=== PATIENT | male | born 1980 | race Caucasian/White ===

== ENCOUNTER 2018-03-10 07:03 | Emergency (ER) | payer MEDICAID, SELFPAY ==
[2018-03-10 07:15] VITALS: BP 106/67; PULSE 66; RESP 16; TEMP 36.5; O2SAT 97
--- NOTE | 2018-03-10 07:37 | DI.RAD_ITS ---
SYMPTOMS/DIAGNOSIS: S/P DOG BITE, ? FOREIGN BODY VERSUS FRACTURE RIGHT HAND: Four views. No priors. No acute fracture or dislocation is identified. No radiopaque foreign bodies are seen in the soft tissues. IMPRESSION: No acute abnormality.
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
[2018-03-10] MEDS: Amoxicillin 875/Clav. 125 TAB PO (08:08)
[2018-03-10] MEDS: Ibuprofen 600 MG TAB PO (08:08)
--- NOTE | 2018-03-10 08:08 | NUR.NOTE ---
[facility] health officer notified of animal bite:
== END 2018-03-10 08:49 | disposition home or self-care (01) ==
PROVIDERS: Emergency Provider Physician Assistant; PCP Nurse Practitioner Adult Health
DX: S61.431A Puncture wound without foreign body of right hand, initial encounter (principal); W54.0XXA Bitten by dog, initial encounter
CPT/HCPCS: 90471; 99284; 73130; 99282

== ENCOUNTER 2019-02-21 15:53 | Emergency (ER) | payer MEDICAID, SELFPAY ==
[2019-02-21 15:57] VITALS: BP 127/92; PULSE 92; RESP 16; TEMP 36.7; O2SAT 97
--- NOTE | 2019-02-21 16:38 | DI.RAD_ITS ---
EXAM: XR HAND RT COMPLETE INDICATION: dog bite thenar eminence. COMPARISON: No exams were available for comparison TECHNIQUE: 2D digital imaging was performed. FINDINGS: No acute fracture or dislocation is seen. There is an old fracture deformity of the 5th metacarpal. No radiopaque foreign bodies are seen in the soft tissues. There is a small amount of air in the so ft tissues between the 1st and 2nd metacarpal bones. IMPRESSION: No acute fracture or dislocation.
--- NOTE | 2019-02-21 16:38 | W.ED.GENAD ---
Discharge Plan Disposition Patient Disposition: HOME Condition: Good Discharge Details Chief Complaint: AnimalBite Clinical Impression: Dog bite of hand Primary Care Provider: Suzanne Howell ED Provider: Dorota Díaz Home Meds and New Rx's Prescriptions: New amoxicillin-pot clavulanate [Augmentin] 875-125 mg tablet 1 tab PO BID Qty: 14 RF: 0 Continued fluoxetine 20 mg Capsule 40 mg PO DAILY RF: 0 Discharge Instructions Instructions: Animal Bite (ED) Additional Instructions: Encourage rest, ice, elevation. Please keep wound clean, dry, covered. Tylenol and/or ibuprofen as needed for discomfort. Please take Augmentin as prescribed to help prevent infection. Please return in 10 days for suture removal and wound evaluation. Keep current dressing on for the next 24 hours. After that time, you may cover with Band-Aids. Wear gloves and appropriate. Please monitor for signs of infection. If you do not notice redness, warmth, drainage, increased pain, fever/chills please seek care urgently once again. Referrals: Suzanne Howell, P[facility]ATHER [Primary Care Provider] - Discharge Data Discharge Date/Time-TO BE ENTERED AT DEPARTURE: 02/21/19 18:00 Medical Decision Making Patient is a 38-year-old [id number]-mlytruao male history of anxiety, presenting today with chief complaint of dog bite to his right hand. He reports a prior to arrival he was throwing trash into a dumpster when a dog bit him as he attempted to pet it. Initially, the patient had reported that he did not know what the dog was. However, on further forward flexion he was able to determine who his dog this was was able to contact the patient. They were able to supply rabies vaccinations and are able to quarantine the dog for the next 10 days. Patient's tetanus is up-to-date, reports has had it within the last year. Denies any altered sensation. Denies other area of injury the time of the incident. Is irregular shaped laceration proximally 5 cm in length over the thenar eminence of the right hand. Ligamentously intact, sensation intact, brisk capillary refill. No pain with axial loading of the thumb patient along the dorsal aspect. Full range of motion. Plan for imaging to evaluate for any bony abnormality, which I find unlikely, or retained foreign body. FINDINGS: Bones/joints: Old fracture in the fifth metacarpal bone, healed. No acute fracture or dislocation. No osteomyelitis. Soft tissues: Normal. IMPRESSION: No acute finding. Discussed these findings with the patient. Patient's wound does gape open significantly is 5 cm in length. We discussed risk/benefits of loose reapproximation suture closure. We did discuss the risks of infection in depth. We discussed risk/benefits of this procedure along with the expected procedural steps. He voiced understanding and wished to proceed. Please see procedure note. Patient tolerated this well. Wound was copiously irrigated and explored to base in bloodless field. No foreign body or debris was noted. Wound was loosely reapproximated with #3 simple interrupted stitches. Wound care was discussed in depth. We discussed the signs symptoms of infection when to seek care urgently once again. Otherwise, patient will return in 10 days for suture removal. All of his questions and concerns were addressed and he is agreement this plan. HPI General Mode of arrival: ambulatory. Date/Time Provider Initiated Documentation: 02/21/19 16:29. Limitations to Documentation: no limitations. Information obtained by: patient and RN notes reviewed. HPI Narrative: Patient 38-year-old osvzm-vlmd-lvvfciin male presenting today with chief complaint of dog bite to the right hand. He reports that he was putting a trash into the dumpster and noted a dog outside. Put out his hand to the dog. Describes the dog is campos, well-kempt. States that the dog then struck out and bit him. He did not notice that the dog had a collar or any identification on it. Patient is up-to-date on tetanus. He has not had rabies vaccines historically. He denies any numbness or tingling. Denies other injury the time of the incident. Is not noted any weakness into the right thumb. Related Data Home Medications Medication Instructions Recorded Confirmed amoxicillin-pot clavulanate 1 tab PO BID #14 tab 02/21/19 [Augmentin] fluoxetine 40 mg PO DAILY 02/21/19 02/21/19 Previous Rx's Medication Instructions Recorded amoxicillin-pot clavulanate 1 tab PO BID #14 tab 02/21/19 [Augmentin] Allergies Allergy/AdvReac Type Severity Reaction Status Date / Time bupropion HCl AdvReac Severe extreme Verified 02/21/19 16:02 [From Wellbutrin] anxiety General Stated Complaint: AnimalBite MARCELO: 4 Review of Systems Constitutional Constitutional: Reports as per HPI, Denies chills, Denies fever(s), Denies headache(s) and Denies weakness ENT Ears, Nose, Mouth, and Throat: Denies headache(s) Cardiovascular Cardiovascular: Reports as per HPI Respiratory Respiratory: Reports as per HPI and Denies cough Musculoskeletal Musculoskeletal: Reports as per HPI and Denies tingling Integumentary/Breasts Skin/Breast: Reports as per HPI and Reports wounds Neurologic Neurologic: Reports as per HPI, Denies headache(s), Denies tingling, Denies paresthesias and Denies weakness [facility] Medical History Alcoh dep NEC/NOS, 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 s/p hospitalization Chronic anxiety (Inactive 04/19/13) Ritualistic tendencies Dysthymia (Chronic 09/12/17) Herpes simplex (Resolved 03/22/12) Oral Surgical History No significant past surgical history (Acute) Family History (Updated 11/29/18 @ 15:01 by Suzanne Howell NP) Mother , [place] 2010 when Cristian was 6 yo, dad remarried CAD (coronary artery disease) Myocardial infarct Father , stroke Stroke Maternal Grandfather Alcohol abuse CAD (coronary artery disease) Other Anxiety Drug addiction Social History Smoking/Tobacco Use Status: Former Tobacco Use Tobacco: How many years used: 10 Alcohol Intake: former Year quit: 2006 Drug use: Never Substance use type: marijuana Adopted: No Foster care: No Number of Children: 0 Pets and animals: Yes Frequency: 3-4 times per week Seatbelt use: always Helmet use: Yes Drive intox or ride w/intox route sales driver: No Working smoke detector in home: Yes Fire extinguisher in home: Yes Carbon monox detector in home: Yes Firearms in home: No Do you feel safe in your relationship?: Yes Additional Social history: occasional THC, 5-6 times /yr Exam Const General: cooperative, healthy appearing, comfortable, no acute distress, well developed and well groomed Nutritional Appearance: average body habitus and well nourished Orientation: alert and awake Resp Effort & Inspection: normal respiratory effort, able to speak in complete sentences and no respiratory distress Cardio Rate: regular rate Rhythm: regular rhythm Skin Trauma: laceration (as drawn below) Neuro General: alert and awake Cognition: normal cognition Speech: speech normal Gait: normal gait Motor: muscle tone normal throughout Sensory Exam: no sensory deficits noted Extrem Right upper extremity: full ROM, normal capillary refill, no joint enlargement, wrist Details: normal to inspection, normal ROM, normal vascular exam and radial pulse present; no tenderness, no swelling, no unusual warmth, no abrasions, no lacerations, no ecchymosis and no deformity and hand; abnormal to inspection, no cyanosis and no edema Hand/finger images: 1. Irregularly shaped wound to the right hand. Full ROM of thumb. No sensation change. Good flexion against resistance at IP and MCP joint. Deep structures are intact. Brisk capillary refill. Minimal bleeding noted. Psych Appearance: grossly normal and well kempt Mental Status: mental status grossly normal Speech and Movement: speech and movement normal Course Vital Signs Vital signs: Vital Signs Temperature 36.7 C 02/21/19 15:57 Pulse 92 H 02/21/19 15:57 Respiratory Rate 16 02/21/19 15:57 Blood Pressure 127/92 H 02/21/19 15:57 Pulse Oximetry 97 02/21/19 15:57 Temperature 36.7 C 02/21/19 15:57 Pulse 92 H 02/21/19 15:57 Respiratory Rate 16 02/21/19 15:57 Respiratory Effort Non-Labored 02/21/19 16:01 Blood Pressure 127/92 H 02/21/19 15:57 Blood Pressure Position Sitting 02/21/19 15:57 Pulse Oximetry 97 02/21/19 15:57 Oxygen Delivery Method Room Air 02/21/19 15:57 Oxygen Flow Rate 0 02/21/19 15:57 Pain Level 5 02/21/19 15:57 Procedures Laceration Laceration 1: Site: hand Side (If applicable): right Size (cm): 5 Description: irregular Depth: simple, single layer Local Anesthetic: Lidocaine 1% Amount of anesthesia used (mL): 10 Pre-repair: wound explored, irrigated extensively and deep structures intact Skin layer closed with: nylon Size (cm): 5-0 Number of sutures: 3
--- NOTE | 2019-02-21 17:00 | DI.VRAD_ITS ---
PROCEDURE INFORMATION: Exam: XR Right Hand Exam date and time: 02/21/2019 4:53 PM Age: 38 years old Clinical history: Injury or trauma; Injury history: Dog bite; Work related; Initial encounter; Hand; Right; Additional info: incorrect marker, should be right TECHNIQUE: Imaging protocol: XR Right hand. Views: 3 or more views. COMPARISON: CR XR hand RT complete 03/10/2018 7:59 AM FINDINGS: Bones/joints: Old fracture in the fifth metacarpal bone, healed. No acute fracture or dislocation. No osteomyelitis. Soft tissues: Normal. IMPRESSION: No acute finding. Dictated and Authenticated by: Davi Robertson MD. Ordering:PARISH Raya MD
--- NOTE | 2019-02-21 17:22 | NUR.NOTE ---
Nursing Note: Faxed to [facility] Dispatch the animal bite report for [facility]. Messages left at work and on cell phone in regards to this incident. Yeny Burgess. Fax [phone]
== END 2019-02-21 18:00 | disposition home or self-care (01) ==
PROVIDERS: Emergency Provider Physician Assistant; PCP Nurse Practitioner Adult Health
DX: S61.451A Open bite of right hand, initial encounter (principal); W54.0XXA Bitten by dog, initial encounter
CPT/HCPCS: 12002; 99283; 73130; 99281

== ENCOUNTER 2024-11-27 21:53 | Emergency (ER) | payer OTHER, MEDICAID, SELFPAY ==
[2024-11-27 21:55] VITALS: BP 148/86; PULSE 94; RESP 20; TEMP 36.1; O2SAT 98
[2024-11-27 21:57] VITALS: BP 148/86; PULSE 94; RESP 20; TEMP 36.1; O2SAT 98
--- NOTE | 2024-11-27 22:00 | RT.EKG_ITS ---
APPROVED REPORT Exam: Resting ECG Reason for Exam: ingestion Patient Location: E HR:78 bpm ECG Measurements Heart Rate 78 AXIS HI 155 P 78 QRSd 88 QRS 71 QT 423 T 66 QTc 483 Conclusion Sinus rhythm...normal P axis, V-rate 60- [address] segment or T wave abnormalities to suggest occlusive [place]
[2024-11-27 22:28] LABS: BE (Venous) 4 mmol/L (-2-3); HCO3 (Venous) 29 mmol/L (23-28); O2 Sat (Venous) 70 %; TCO2 (Venous) 26 mmol/L (24-29); pCO2 (Venous) 49 mmHg (41-51); pO2 (Venous) 38 mmHg
[2024-11-27 22:30] LABS: Abs Immature Grans 0.04 10^3/uL (0.0-0.06); HCT 44.9 % (40.0-50.0); HGB 15.4 g/dL (13.5-17.5); Immature Grans % 0.5 %; MCH 32.0 pg (27.0-33.0); MCHC 34.3 % (32.0-36.0); MCV 93 fL (80-95); MPV 9.6 fL (8.0-11.0); Platelet Count 246 10^3/uL (130-400); RBC 4.81 10^6/uL (4.36-5.78); RDW 12.5 % (11.8-14.1); RDW-SD 43.2 fL; WBC 7.30 10^3/uL (4.4-10.8)
--- NOTE | 2024-11-27 22:30 | W.ED.GENAD ---
Discharge Plan Disposition Patient Disposition: Home Condition: Good Discharge Details Clinical Impression: Intoxication by drug Primary Care Provider: Suzanne Howell ED Provider: Lisa Carranza Home Meds and New Rx's Prescriptions: Continued multivitamin Tablet 1 tab PO DAILY valacyclovir [Valtrex] 1 gram tablet 2,000 mg PO Q12H Qty: 12 1RF Rx Instructions: Cold sores: 2,000mg by mouth q12h x1d, may repeat x1 for cold sores. Start UZIEL after symptom onset. Discharge Instructions Instructions: Hypokalemia Additional Instructions: Call your primary care doctor in the morning to schedule an appointment to be seen within the next 72 hours to followup on your visit here. At that visit please discuss your potassium which is low here in the emergency department. If your potassium gets dangerously low it can cause life threatening cardiac arythmias. Avoid taking medications with the ingredient dextromethorphan; this is likely what caused your symptoms tonight. Return to the emergency department for new or worsening symptoms including vomiting, inability to keep down fluids, if your confusion returns, fever, hallucinations, or if you have any other concerns. Discharge Data Discharge Date/Time-TO BE ENTERED AT DEPARTURE: 11/28/24 02:51 HPI General Mode of arrival: EMS. Date/Time Provider Initiated Documentation: 11/27/24 22:04. Limitations to Documentation: no limitations and altered mental status. Information obtained by: patient and family. HPI Narrative: 44yo M with hx HSV presenting via EMS for altered mental status. History from patient and at bedside. This morning he had some nausea and 2 episodes of nonbloody nonbilious emesis with one episode of nonbloody diarrhea. No abdominal pain or fevers at any point. [place] better as the day went on. Used his vape (marijunna) pen several times throughout the day which is not unusual for him. Sometime around 6-8pm he also took nyquil, states 'a normal dose' for nasal congestion. No cough, chest pain, or shortness of breath. Around 9pm he began acting oddly, asking the same questions over and over again, saying he felt 'spacey and tired'. No hallucinations. This continued to get worse until his called EMS. He has had similar symptoms in the past after taking marijunna and nyquil but never close to this bad. Did not sleep well last night and did not eat much throughout the day today. He is otherwise in his usual state of health with no rash, headache, numbness, tingling, weakness, vertigo, vision changes, or other concerns. Related Data Home Medications ?Medication ?Instructions ?Recorded ?Confirmed multivitamin 1 tab PO DAILY 06/09/20 11/27/24 valacyclovir 1 gram tablet 2,000 mg (2 x 1 gram) PO Q12H #12 09/19/23 11/27/24 (Valtrex) tabs Previous Rx's ?Medication ?Instructions ?Recorded valacyclovir 1 gram tablet 2,000 mg (2 x 1 gram) PO Q12H #12 09/19/23 (Valtrex) tabs Allergies Allergy/AdvReac Type Severity Reaction Status Date / Time bupropion HCl (From AdvReac Severe extreme Verified 09/19/23 11:17 Wellbutrin) anxiety General Stated Complaint: Abd Prob MARCELO: 3 Review of Systems Narrative: see HPI Exam Narrative Exam Narrative: General: Alert, well appearing, well nourished, in no acute distress. Head: Normocephalic, atraumatic Neck: Trachea midline, ?Neck supple. ENT: ?MMM.? Cardiac: ?RRR, no murmurs appreciated Resp: No respiratory distress. CTAB. Abd: ?Soft, non-distended, nontender : ?No suprapubic tenderness. Extremities: ?No deformities.? No peripheral edema. Neuro: ? GCS 15.? PERRL.? Mydriasis. EOMI.? Fluent speech, no dysarthria. Motor- 5/5 strength symmetric bilateral upper and lower extremities Sensation- ?Intact to light touch and symmetric multiple dermatomes including upper and lower extremities Coordination- No dysmetria on finger to nose Reflexes- 2/4 achilles & patellar, no clonus Gait/station: ?Normal stance.? No truncal ataxia. Steady gait with equal normal steps CRANIAL NERVES: II: Pupils equal and reactive, III, IV, : EOM intact, no gaze preference or deviation, no nystagmus. V: normal sensation in V1, V2, and V3 segments bilaterally VII: no asymmetry, no nasolabial fold flattening VIII: normal hearing to speech IX, X: normal palatal elevation, no uvular deviation XII: midline tongue protrusion Psych: Calm, cooperative.? Well groomed.? Mood spacey, affect congruent.? Speech with normal volume, rate, rythym and tone. Linear and goal directed.? Denies SI/HI/AH/VH. ? Does not appear to be responding to internal stimuli. No psychomotor slowing or agitation. Course Vital Signs Vital signs: Vital Signs Temperature 36.1 C L 11/27/24 21:55 Pulse 94 H 11/27/24 21:55 Respiratory Rate 20 11/27/24 21:55 Blood Pressure 148/86 H 11/27/24 21:55 Pulse Oximetry 98 11/27/24 21:55 Temperature 36.1 C L 11/27/24 21:57 Pulse 94 H 11/27/24 21:57 Respiratory Rate 20 11/27/24 21:57 Blood Pressure 148/86 H 11/27/24 21:57 Blood Pressure Position Sitting 11/27/24 21:57 Pulse Oximetry 98 11/27/24 21:57 Oxygen Delivery Method Room Air 11/27/24 21:57 Oxygen Flow Rate 0 11/27/24 21:57 Lab/Test Results Lab/Test Results: Laboratory Tests Range/Units 11/27/24 22:22 VBG pH (7.31-7.41) 7.39 VBG pCO2 (41-51) mmHg 49 VBG pO2 mmHg 38 VBG HCO3 (23-28) mmol/L 29 H VBG Total CO2 (24-29) mmol/L 26 VBG O2 Saturation % 70 VBG Base Excess (-2-3) mmol/L 4 H Medical Decision Making 44yo M with hx HSV presenting via EMS for altered mental status. N/V/D first thing in the morning but none since then, did not sleep well last night or eat much today. Marijunna use several times throughout the day, then nyquil (reports 'normal' dose) sometime between 6-8pm. Around 9pm began acting oddly, confused, repeating the same questions. Vital signs reassuring on arrival. Non-focal neurologic exam. Does have moderate mydriasis and some confusion, difficulty remembering the course of our conversation. Exam overall not suggestive of sympathomimetic or serotinergic toxidrome; does seem consistent with dextromethorphan ingestion though would not expect this from typical dose. Less likely CVA given history; discussed with patient and at bedside with shared decision making and they would like to proceed with CT. -EKG NSR, acceptable intervals, no ST segment or T wave abnormalities to suggest occlusive ME -Labs reviewed as below, CBC reassuring with no leukocytosis or anemia, CMP with hypokalemia at 3.1 in the setting of vomiting earlier today (oral replacement ordered), Mg normal, TSH elevated with normal T4, VBG with no acidosis and no concerning abnormalities, serum salicylate & etoh negative, acetaminophen level detectable but WNL at 2-4 hours post ingestion. -CT head independently reviewed, no ICH or large mass on my view, radiology read with no acute findings. One episode of vomiting here in the ED during lab draw (patient and report he often has difficulty with needles), otherwise no N/V in the ED. Suspect vasovagal response. Discussed with poison control who agree overall presentation consistent with dextromethorphan ingestion. Plan for repeat acetaminophen level and discharge when mental status clearing. Repeat acetaminophen level at 4-6 hours post ingestion undetectable. Repeat K 4.0. On reassessment he continues to have mydriasis however mental status much improved, no longer seems confused (though perhaps still somewhat giddy). Patient requesting discharge home and at bedside states he is acting like his usual self. Discharged home; discharge instructions and return precautions were reviewed with patient and family at beside who verbalized understanding. All questions were answered and they are in full agreement with the plan. IMPRESSION: 1. No large vessel stenosis or occlusion detected involving the major branches of the anterior or posterior intracranial circulation. 2. Unremarkable noncontrast head CT Lab Data Lab results reviewed: Yes I reviewed the patient's lab results. Labs: Laboratory Tests Range/Units 11/27/24 11/28/24 22:22 01:27 WBC (4.4-10.8) 10^3/uL 7.30 RBC (4.36-5.78) 10^6/uL 4.81 Hgb (13.5-17.5) g/dL 15.4 Hct (40.0-50.0) % 44.9 MCV (80-95) fL 93 MCH (27.0-33.0) pg 32.0 MCHC (32.0-36.0) % 34.3 RDW (11.8-14.1) % 12.5 Plt Count (130-400) 10^3/uL 246 MPV (8.0-11.0) fL 9.6 Immature Gran % % 0.5 Neutrophils % % 49.0 Lymphocytes % % 41.6 Monocytes % % 6.7 Eosinophils % % 1.4 Basophils % % 0.8 Nucleated RBC % (0.0-0.3) % 0.0 Absolute Neutrophils (1.2-6.7) 10^3/uL 3.57 Absolute Lymphocytes (1.2-3.4) 10^3/uL 3.04 Absolute Monocytes (0.1-0.8) 10^3/uL 0.49 Absolute Eosinophils (0.0-0.7) 10^3/uL 0.10 Absolute Basophils (0.0-0.2) 10^3/uL 0.06 VBG pH (7.31-7.41) 7.39 VBG pCO2 (41-51) mmHg 49 VBG pO2 mmHg 38 VBG HCO3 (23-28) mmol/L 29 H VBG Total CO2 (24-29) mmol/L 26 VBG O2 Saturation % 70 VBG Base Excess (-2-3) mmol/L 4 H Sodium (136-145) mmol/L 140 Potassium (3.5-5.1) mmol/L 3.1 L 4.0 Chloride (98-107) mmol/L 99 Carbon Dioxide (21.0-32.0) mmol/L 30.2 Anion Gap (3-11) mmol/L 10.8 BUN (7-18) mg/dL 8 Creatinine (0.70-1.30) mg/dL 1.0 Est GFR (CKD-EPI 2020) (mL/min/1.73m2) 95.77 Glucose (74-106) mg/dL 111 H Calcium (8.5-10.1) mg/dL 9.3 Magnesium (1.8-2.4) mg/dL 2.0 Total Bilirubin (0.2-1.0) mg/dL 0.5 AST (15-37) U/L 23 ALT (16-63) U/L 24 Alkaline Phosphatase (46-116) U/L 75 Total Protein (6.4-8.2) g/dL 8.2 Albumin (3.4-5.0) g/dL 4.5 TSH (0.36-3.74) uIU/mL 4.39 H Free T4 (0.76-1.46) ng/dL 0.95 Salicylates (<2.8) mg/dL < 2.8 Acetaminophen (10-30) ug/mL 15 < 2 Ethyl Alcohol (<10) mg/dL < 3.0 Add-On Test Request DONE Quality:SDOH Health Related Social Needs: Health related social needs details N/A PFSH All Active Problems (Updated 11/28/24 @ 02:36 by Lisa Carranza MD) Intoxication by drug (Acute) Multiple benign nevi (Acute) Herpes simplex (Chronic 03/22/12) Oral; suppressive tx started 12/12/2019 History of nicotine dependence (Chronic) Medical History (Updated 11/28/24 @ 02:36 by Lisa Carranza MD) Dysthymia (09/12/17) Intermittent fluox Chronic anxiety (04/19/13) Ritualistic tendencies Alcoh dep NEC/NOS, 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 s/p hospitalization Surgical History No significant past surgical history Family History Mother , [place] 2010 when Cristian was 6 yo, dad remarried CAD (coronary artery disease) Myocardial infarct Father , stroke Stroke Maternal Grandfather Alcohol abuse CAD (coronary artery disease) Other Anxiety Drug addiction Social History Smoking/Tobacco Use Status: Former Tobacco Use Tobacco: How many years used: 10 Smoking risk assessment performed?: Yes Alcohol Intake: former Year quit: 2006 Drug use: Rarely Substance use type: marijuana Adopted: No Caregiver/Support person: No Foster care: No Household members: family Housing: house Number of Children: 1 Communication Needs: None Education Level: high school Do you need help understanding health information?: Never 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 Pets and animals: Yes Pets and animals: cat(s) and dog(s) Sexually active: Yes Do you think of yourself as: straight/heterosexual Current gender identity: male What is your relationship status?: How often do you talk on the phone with friends or family?: never How often do you get together with friends or relatives?: never How often do you attend samaritan or religion services?: decline to answer Do you belong to any clubs or organized social groups?: no Panel score (0-1 are the most socially isolated patients): 1 What type of physical activity do you participate in: regular exercise and other Details: basketball Duration: 15-30 minutes/day Frequency: 3-4 times per week Edna/Sikh: None Agree to transfusion: No Seatbelt use: always Helmet use: No (No reason) Drive intox or ride w/intox 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
[2024-11-27 22:47] LABS: ALT 24 U/L (16-63); AST 23 U/L (15-37); Albumin 4.5 g/dL (3.4-5.0); Alkaline Phosphatase 75 U/L (46-116); Anion Gap 10.8 mmol/L (3-11); BUN 8 mg/dL (7-18); Bilirubin, Total 0.5 mg/dL (0.2-1.0); CO2 30.2 mmol/L (21.0-32.0); Calcium 9.3 mg/dL (8.5-10.1); Chloride 99 mmol/L (98-107); Estimated GFR 95.77 (mL/min/1.73m2); Glucose 111 mg/dL (74-106); Magnesium 2.0 mg/dL (1.8-2.4); Potassium 3.1 mmol/L (3.5-5.1); Sodium 140 mmol/L (136-145); Total Protein 8.2 g/dL (6.4-8.2)
[2024-11-27 22:56] LABS: TSH (W/Ref FT4) 4.39 uIU/mL (0.36-3.74)
--- NOTE | 2024-11-27 23:00 | DI.CT_ITS ---
Exam(s) CT BRAIN NECK CTA EXAM: CT BRAIN NECK CTA CLINICAL HISTORY: altered mental status. TECHNIQUE: Imaging Protocol: Axial CT angiography was performed with multi- slice acquisition and multi-planar and/or 3D reconstructions. CONTRAST MATERIAL: Intravenous: Omnipaque 350 contrast volume:70 mL COMPARISON: No exams were available for comparison FINDINGS: CT Head W/O and W: Ventricles and Extra axial spaces: Normal in size and morphology for the patient's age. Hemorrhage: None. Cerebral parenchyma: Normal. Midline shift: None. Brainstem/Cerebellum: Normal. Calvarium: Normal. Visualized Paranasal sinuses/Mastoids: Clear. Soft Tissues: Unremarkable. Enhancement: Unremarkable. CTA Neck W: Common Carotid: Right: No dissection, occlusion or significant stenosis. Left: No dissection, occlusion or significant stenosis. External Carotid: Right: No occlusion or significant stenosis. Left: No occlusion or significant stenosis. Internal Carotid: Right: No dissection, occlusion or significant stenosis. Left: No dissection, occlusion or significant stenosis. Vertebral Artery: Right: No dissection, occlusion or significant stenosis. Left: No dissection, occlusion or significant stenosis. Lung Apices: Normal. Bones: Within normal limits for the patient's age. Soft Tissues: Normal. Thyroid gland: Unremarkable. CTA Brain W: Internal Carotid Arteries: Normal. Anterior Cerebral Arteries: Right: No aneurysm, occlusion or significant stenosis. Left: No aneurysm, occlusion or significant stenosis. Middle Cerebral Arteries: Right: No aneurysm, occlusion or significant stenosis. Left: No aneurysm, occlusion or significant stenosis. Posterior Cerebral Arteries: Right: No aneurysm, occlusion or significant stenosis. Left: No aneurysm, occlusion or significant stenosis. Vertebral Arteries: Right: No aneurysm, occlusion or significant stenosis. Left: No aneurysm, occlusion or significant stenosis. Basilar Artery: No aneurysm, occlusion or significant stenosis. IMPRESSION: 1. No large vessel occlusion or significant stenosis on the CT angiography of the head. 2. No acute intracranial process. 3. No occlusion or significant stenosis on the CT angiography of the neck. 4. The preliminary [facility] report was reviewed. RADIATION DOSE DELIVERED: 2,142.23mGy.cm Total DLP DATA REPOSITORY: All CT scans at this facility are submitted to the National Radiology Data Registry (NRDR) Dose Index Registry (DIR) with the [employer] (ACR). RADIATION OPTIMIZATION: All CT scans at this facility use at least one of these dose optimization techniques: automated exposure control; mA and/or kV adjustment per patient size (includes targeted exams where dose is matched to clinical indication); or iterative reconstruction.
[2024-11-27 23:06] LABS: Lab Add On Test DONE
[2024-11-27] MEDS: Potassium Chloride Liquid 20 MEQ PKT 40 MEQ PO (23:16)
[2024-11-27 23:24] LABS: Acetaminophen 15 ug/mL (10-30); Salicylate < 2.8 mg/dL (<2.8)
[2024-11-27] MEDS: Omnipaque 350 MG/ML 100 ML BTL IJ (23:37)
[2024-11-27] MEDS: Normal Saline - Diluent 50 ML VIAL IJ (23:38)
--- NOTE | 2024-11-27 23:44 | DI.[facility]_ITS ---
PROCEDURE INFORMATION: Exam: CTA Head Without And With Contrast, Arteriography Exam date and time: 11/27/2024 11:20 PM Age: 44 years old Clinical indication: Other: AMS; Altered mental status TECHNIQUE: Imaging protocol: Computed tomographic angiography of the head without and with contrast. Exam focused on the arteries. 3D rendering (Not supervised by radiologist): MIP and/or 3D reconstructed images were created by the technologist. COMPARISON: No relevant prior studies available. FINDINGS: ANTERIOR CIRCULATION: Right internal carotid artery: Intracranial segment is patent with no significant stenosis or occlusion. No aneurysm. Right middle cerebral artery: No occlusion or significant stenosis. No aneurysm. Right anterior cerebral artery: No occlusion or significant stenosis. No aneurysm. Left internal carotid artery: Intracranial segment is patent with no significant stenosis. No aneurysm. Left middle cerebral artery: No occlusion or significant stenosis. No aneurysm. Left anterior cerebral artery: No occlusion or significant stenosis. No aneurysm. POSTERIOR CIRCULATION: Right vertebral artery: No occlusion or significant stenosis. No aneurysm. Left vertebral artery: No occlusion or significant stenosis. No aneurysm. Basilar artery: No occlusion or significant stenosis. No aneurysm. Right posterior cerebral artery: No occlusion or significant stenosis. No aneurysm. Left posterior cerebral artery: No occlusion or significant stenosis. No aneurysm. HEAD: Brain: No intracranial mass, acute transcortical infarction or recent intracranial hemorrhage is detected. Cerebral ventricles: No midline shift or hydrocephalus. Bones: No acute fracture. Paranasal sinuses: Grossly clear throughout. Mastoid air cells: Grossly clear bilaterally. Soft tissues: Unremarkable. IMPRESSION: 1. No large vessel stenosis or occlusion detected involving the major branches of the anterior or posterior intracranial circulation. 2. Unremarkable noncontrast head CT. PROCEDURE INFORMATION: Exam: CTA Neck Without And With Contrast Exam date and time: 11/27/2024 11:20 PM Age: 44 years old Clinical indication: Other: AMS; Altered mental status TECHNIQUE: Imaging protocol: Computed tomographic angiography of the neck without and with contrast. Exam focused on the cervical segments of the vasculature. 3D rendering (Not supervised by radiologist): MIP and/or 3D reconstructed images were created by the technologist. COMPARISON: No relevant prior studies available. FINDINGS: Right common carotid artery: No stenosis. No dissection or occlusion. Right internal carotid artery: No stenosis of the extracranial segment. No dissection or occlusion. Right external carotid artery: No occlusion or stenosis of the origin. Left common carotid artery: No stenosis. No dissection or occlusion. Left internal carotid artery: No stenosis of the extracranial segment. No dissection or occlusion. Left external carotid artery: No occlusion or stenosis of the origin. Right vertebral artery: No stenosis. No dissection or occlusion. Left vertebral artery: No stenosis. No dissection or occlusion. Soft tissues: Normal. No significant soft tissue swelling. Bones/joints: No acute fracture. IMPRESSION: No evidence of 50% or greater stenosis involving the cervical segments of the right or left internal carotid arteries by NASCET criteria. REFERENCES: NASCET CRITERIA. The degree of stenosis in the cervical segment of the internal carotid artery is based on NASCET criteria. Normal is no stenosis. Mild is less than 50% stenosis. Moderate is 50-69% stenosis. Severe is 70% to 99% stenosis. Total occlusion is no detectable patent lumen. Dictated and Authenticated by: Dc Palma MD. Orderin Tere Gonzalez MD
[2024-11-28] MEDS: Ondansetron O.D.T. 4 MG TABEF PO (01:13)
[2024-11-28 01:40] LABS: Potassium 4.0 mmol/L (3.5-5.1)
[2024-11-28 01:57] LABS: Acetaminophen < 2 ug/mL (10-30)
[2024-11-28 02:42] VITALS: PULSE 87; O2SAT 99
[2024-11-28 02:43] VITALS: BP 133/66; PULSE 83; PULSE 87; RESP 18; TEMP 35.6; O2SAT 99
[2024-11-28 02:51] VITALS: BP 133/66; PULSE 83; RESP 18; O2SAT 99
== END 2024-11-28 02:51 | disposition home or self-care (01) ==
PROVIDERS: Emergency Provider Student in an Organized Health Care Education/Training Program; PCP Nurse Practitioner Adult Health
DX: F19.929 Other psychoactive substance use, unspecified with intoxication, unspecified (principal)
CPT/HCPCS: 99285; 99283; 36415; 70496; 70498; 80053; 82805; 93005; 80320; 80329; 83735; 84132; 84439; 84443; 85025; 93010; J3490

== ENCOUNTER 2024-12-20 20:09 | Observation (INO) | payer OTHER, MEDICAID, SELFPAY ==
[2024-12-20] VITALS (14 sets, daily range): BP systolic 69–157; BP diastolic 24–95; PULSE 78–108; RESP 20; TEMP 36.5; O2SAT 94–98
[2024-12-20] MEDS: Lactated Ringers 1,000 ML 1000 ML IV (21:01)
[2024-12-20 21:06] LABS: Abs Immature Grans 0.03 10^3/uL (0.0-0.06); HCT 44.8 % (40.0-50.0); HGB 15.4 g/dL (13.5-17.5); Immature Grans % 0.3 %; MCH 32.0 pg (27.0-33.0); MCHC 34.4 % (32.0-36.0); MCV 93 fL (80-95); MPV 9.9 fL (8.0-11.0); Platelet Count 227 10^3/uL (130-400); RBC 4.82 10^6/uL (4.36-5.78); RDW 12.4 % (11.8-14.1); RDW-SD 42.4 fL; WBC 9.77 10^3/uL (4.4-10.8)
[2024-12-20 21:24] LABS: Ammonia < 10 umol/L (11-32)
[2024-12-20 21:30] LABS: ALT 26 U/L (16-63); AST 26 U/L (15-37); Albumin 4.4 g/dL (3.4-5.0); Alkaline Phosphatase 81 U/L (46-116); Anion Gap 9.9 mmol/L (3-11); BUN 9 mg/dL (7-18); Bilirubin, Total 0.5 mg/dL (0.2-1.0); CO2 29.1 mmol/L (21.0-32.0); Calcium 9.5 mg/dL (8.5-10.1); Chloride 100 mmol/L (98-107); Estimated GFR 108.68 (mL/min/1.73m2); Glucose 168 mg/dL (74-106); Magnesium 1.8 mg/dL (1.8-2.4); Potassium 3.7 mmol/L (3.5-5.1); Sodium 139 mmol/L (136-145); TSH (W/Ref FT4) 2.88 uIU/mL (0.36-3.74); Total Protein 8.3 g/dL (6.4-8.2); Troponin I 4 ng/L (<or=76)
--- NOTE | 2024-12-20 22:07 | ED.GENADUL_ITS ---
Discharge Plan Discharge Details Chief Complaint: AMS/LOC Primary Care Provider: Suzanne Howell ED Provider: Shad Garcia Home Meds and New Rx's Prescriptions: No Action multivitamin Tablet 1 tab PO DAILY valacyclovir [Valtrex] 1 gram tablet 2,000 mg PO Q12H Qty: 12 1RF Rx Instructions: Cold sores: 2,000mg by mouth q12h x1d, may repeat x1 for cold sores. Start UZIEL after symptom onset. HPI General Mode of arrival: ambulatory . Date/Time Provider Initiated Documentation: 12/20/24 20:41 . Limitations to Documentation: altered mental status . Information obtained by: patient and family . HPI Narrative: HISTORY OF PRESENT ILLNESS This is a 44yo male with a history of depression and anxiety presenting with confusion and forgetfulness. History limited secondary to altered mentation. History provided by significant other. This evening, he started repeating himself and asking the same questions. He also had difficulty remembering his whereabouts. His condition worsened rapidly as the evening progressed. He does not recall his previous visit to the ER a few weeks ago. He reports no pain, headache, nausea, shaking episodes, or urinary incontinence. He has been experiencing intermittent headaches over the past few days. He has been using THC gummies for a few years now, but this is the first time he has experienced such symptoms. He has been sober from alcohol for about 16 years and reports no use of other drugs. He is currently unemployed and spends most of his time at home. He does not take any medications regularly. He took Tums tonight due to feeling sweaty and unwell, but his condition deteriorated rapidly afterwards. He has not eaten all day and consumed a THC gummy after returning home. It is unclear if he had any THC before that. His partner believes that the combination of THC and an empty stomach may have triggered or exacerbated his symptoms. The patient experienced a similar episode of confusion and forgetfulness a few weeks ago. He was evaluated in the ED and had a negative workup including CT head. Symptoms improved. It was believed that that THC was involved in his last episode as well. Related Data Home Medications ?Medication ?Instructions ?Recorded ?Confirmed multivitamin 1 tab PO DAILY 06/09/2012/03 valacyclovir 1 gram tablet 2,000 mg (2 x 1 gram) PO Q1 2H #12 09/19/23 12/20/24 (Valtrex) tabs Previous Rx's ?Medication ?Instructions ?Recorded valacyclovir 1 gram tablet 2,000 mg (2 x 1 gram) PO Q1 2H #12 09/19/23 (Valtrex) tabs Allergies Allergy/AdvReac Type Severity Reaction Status Date / Time bupropion HCl (From AdvReac Severe extreme Verified 12/20/24 20:19 Wellbutrin) anxiety General Stated Complaint: AMS/LOC MARCELO: 3 Review of Systems Constitutional Constitutional: Reports as per HPI Neurologic Neurologic: Reports as per HPI Exam Const General: cooperative and no acute distress Nutritional Appearance: thin Orientation: alert and confused HENPA Head: normocephalic and atraumatic Mouth: moist mucous membranes Eyes Conjunctivae: normal conjunctivae Sclera: normal sclerae Pupils: PERRL and normal by confrontation EOM: EOM intact bilaterally Neck Neck: full ROM, trachea midline and supple Resp Effort & Inspection: normal respiratory effort Auscultation: clear to auscultation bilaterally, no rales, no rhonchi and no wheezes Cardio Jugular venous pressure: no JVD Rate: regular rate and not tachycardic Rhythm: regular rhythm GI Palpation: soft, not firm, no guarding, no masses, not rigid and nontender Skin General skin exam: no rashes or lesions noted and pallor Neuro General: patient alert, patient awake, patient oriented x3 and tone normal Cognition: abnormal cognition Speech: speech normal Motor: strength 5/5 throughout Sensory Exam: no sensory deficits noted Extrem General: no edema Course Vital Signs Vital signs: Vital Signs Temperature 36.5 C 12/20/24 20:13 Pulse 93 H 12/20/24 20:13 Respiratory Rate 12/20/24 20:13 Blood Pressure 157/93 H 12/20/24 20:13 Pulse Oximetry 96 12/20/24 20:13 Temperature 36.5 C 12/20/24 20:17 Pulse 93 H 12/20/24 20:17 Respiratory Rate 20 12/20/24 20:17 Respiratory Effort Normal 12/20/24 20:17 Respiratory Depth Normal 12/20/24 20:17 Respiratory Pattern Normal 12/20/24 20:17 Blood Pressure 157/93 H 12/20/24 20:17 Blood Pressure Position Sitting 12/20/24 20:17 Pulse Oximetry 96 12/20/24 20:17 Oxygen Delivery Method Room Air 12/20/24 20:17 Oxygen Flow Rate 0 12/20/24 20:17 Lab/Test Results Lab/Test Results: Laboratory Tests Range/Units 12/20/24 12/20/24 20:40 21:05 WBC (4.4-10.8) 10^3/uL 9.77 RBC (4.36-5.78) 10^6/uL 4.82 Hgb (13.5-17.5) g/dL 15.4 Hct (40.0-50.0) % 44.8 MCV (80-95) fL 93 MCH (27.0-33.0) pg 32.0 MCHC (32.0-36.0) % 34.4 RDW (11.8-14.1) % 12.4 Plt Count (130-400) 10^3/uL 227 MPV (8.0-11.0) fL 9.9 Immature Gran % % 0.3 Neutrophils % % 73.4 Lymphocytes % % 20.8 Monocytes % % 5.2 Eosinophils % % 0.1 Basophils % % 0.2 Nucleated RBC % (0.0-0.3) % 0.0 Absolute Neutrophils (1.2-6.7) 10^3/uL 7.17 H Absolute Lymphocytes (1.2-3.4) 10^3/uL 2.03 Absolute Monocytes (0.1-0.8) 10^3/uL 0.51 Absolute Eosinophils (0.0-0.7) 10^3/uL 0.01 Absolute Basophils (0.0-0.2) 10^3/uL 0.02 Sodium (136-145) mmol/L 139 Potassium (3.5-5.1) mmol/L 3.7 Chloride (98-107) mmol/L 100 Carbon Dioxide (21.0-32.0) mmol/L 29.1 Anion Gap (3-11) mmol/L 9.9 BUN (7-18) mg/dL 9 Creatinine (0.70-1.30) mg/dL 0.9 Est GFR (CKD-EPI 2020) (mL/min/1.73m2) 108.68 Glucose (74-106) mg/dL 168 H Calcium (8.5-10.1) mg/dL 9.5 Magnesium (1.8-2.4) mg/dL 1.8 Total Bilirubin (0.2-1.0) mg/dL 0.5 AST (15-37) U/L 26 ALT (16-63) U/L 26 Alkaline Phosphatase (46-116) U/L 81 Ammonia (11-32) umol/L < 10 L Troponin I (<or=76) ng/L 4 Total Protein (6.4-8.2) g/dL 8.3 H Albumin (3.4-5.0) g/dL 4.4 TSH (0.36-3.74) uIU/mL 2.88 Ethyl Alcohol (<10) mg/dL < 3.0 Medical Decision Making ASSESSMENT AND PLAN Initial Assessment: 44 yo male with significant alteration in mental status. Patient is currently amnestic and confused. Symptoms strated after consuming THC gummy. Patient is hypertensive blood pressure 157/93. Differential Diagnosis: - THC ingestion: Presumed cause of altered mental status. Plan: Administer i.v. fluid bolus. - Other substances: Possibility cannot be ruled out. Plan: Obtain blood work and urine specimen for screening. ED Course: - Blood work obtained - Urine specimen obtained - i.v. fluid bolus administered - Past medical record was reviewed: CTA of the brain and neck 11/27/2024 as interpreted by radiology: 1. No large vessel occlusion or significant stenosis on the CT angiography of the head. 2. No acute intracranial process. 3. No occlusion or significant stenosis on the CT angiography of the neck. 4. The preliminary [facility] report was reviewed. - 2239 --patient reassessed and continues to have repetitive questioning where am I and what is going on. knows its 2024. Continues to have no pain. - Labs reviewed: Hyperglycemia, glucose 168. No anion gap. No significant electrolyte abnormalities. UDS pending. - UDS positive for THC Clinical Impression: - Altered mental status suspected secondary to THC ingestion This document was written with the assistance of CHIRAG Moreira. The patient consented to its use. Lab Data Lab results reviewed: Yes I reviewed the patient's lab results. Labs: Laboratory Tests Range/Units 12/20/24 12/20/24 20:40 21:05 WBC (4.4-10.8) 10^3/uL 9.77 RBC (4.36-5.78) 10^6/uL 4.82 Hgb (13.5-17.5) g/dL 15.4 Hct (40.0-50.0) % 44.8 MCV (80-95) fL 93 MCH (27.0-33.0) pg 32.0 MCHC (32.0-36.0) % 34.4 RDW (11.8-14.1) % 12.4 Plt Count (130-400) 10^3/uL 227 MPV (8.0-11.0) fL 9.9 Immature Gran % % 0.3 Neutrophils % % 73.4 Lymphocytes % % 20.8 Monocytes % % 5.2 Eosinophils % % 0.1 Basophils % % 0.2 Nucleated RBC % (0.0-0.3) % 0.0 Absolute Neutrophils (1.2-6.7) 10^3/uL 7.17 H Absolute Lymphocytes (1.2-3.4) 10^3/uL 2.03 Absolute Monocytes (0.1-0.8) 10^3/uL 0.51 Absolute Eosinophils (0.0-0.7) 10^3/uL 0.01 Absolute Basophils (0.0-0.2) 10^3/uL 0.02 Sodium (136-145) mmol/L 139 Potassium (3.5-5.1) mmol/L 3.7 Chloride (98-107) mmol/L 100 Carbon Dioxide (21.0-32.0) mmol/L 29.1 Anion Gap (3-11) mmol/L 9.9 BUN (7-18) mg/dL 9 Creatinine (0.70-1.30) mg/dL 0.9 Est GFR (CKD-EPI 2020) (mL/min/1.73m2) 108.68 Glucose (74-106) mg/dL 168 H Calcium (8.5-10.1) mg/dL 9.5 Magnesium (1.8-2.4) mg/dL 1.8 Total Bilirubin (0.2-1.0) mg/dL 0.5 AST (15-37) U/L 26 ALT (16-63) U/L 26 Alkaline Phosphatase (46-116) U/L 81 Ammonia (11-32) umol/L < 10 L Troponin I (<or=76) ng/L 4 Total Protein (6.4-8.2) g/dL 8.3 H Albumin (3.4-5.0) g/dL 4.4 TSH (0.36-3.74) uIU/mL 2.88 Ethyl Alcohol (<10) mg/dL < 3.0 Quality:SDOH Health Related Social Needs: Health related social needs details N/A PFSH All Active Problems Intoxication by drug (Acute) Multiple benign nevi (Acute) Herpes simplex (Chronic 03/22/12) Oral; suppressive tx started 12/12/2019 History of nicotine dependence (Chronic) Medical History Dysthymia (09/12/17) Intermittent fluox Chronic anxiety (04/19/13) Ritualistic tendencies Alcoh dep NEC/NOS, 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 s/p hospitalization Surgical History No significant past surgical history Family History Mother , [place] 2010 when Cristian was 6 yo, dad remarried CAD (coronary artery disease) Myocardial infarct Father , stroke Stroke Maternal Grandfather Alcohol abuse CAD (coronary artery disease) Other Anxiety Drug addiction Social History Smoking/Tobacco Use Status: Former Tobacco Use Tobacco: How many years used: 10 Smoking risk assessment performed?: Yes Alcohol Intake: former Year quit: 2006 Drug use: Rarely Substance use type: marijuana Adopted: No Caregiver/Support person: No Foster care: No Household members: family Housing: house Number of Children: 1 Communication Needs: None Education Level: high school Do you need help understanding health information?: Never 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 [employer] Pets and animals: Yes Pets and animals: cat(s) and dog(s) Sexually active: Yes Do you think of yourself as: straight/heterosexual Current gender identity: male What is your relationship status?: How often do you talk on the phone with friends or family?: never How often do you get together with friends or relatives?: never How often do you attend latter day or nondenominational services?: decline to answer Do you belong to any clubs or organized social groups?: no Panel score (0-1 are the most socially isolated patients): 1 What type of physical activity do you participate in: regular exercise and other Details: basketball Duration: 15-30 minutes/day Frequency: 3-4 times per week Edna/Latter-Day: None Agree to transfusion: No Seatbelt use: always Helmet use: No (No reason) Drive intox or ride w/intox rivet 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
[2024-12-20 22:52] LABS: Cannabinoids THC Positive (Negative); METHADONE URINE SCREEN Negative (Negative)
--- NOTE | 2024-12-20 23:12 | W.EDPROG ---
Date of service: 12/20/24 Time of Service: 23:12 Medical Decision Making This patient was signed out to me. Please see previous notes for H&P and initial eval. In brief, 44yo M presenting altered mental status after consuming THC gummies. Similar episode several weeks ago also involving THC and cold medications, reassuring workup at that time including head CT. Laboratory workup reassuring today, mental status improving. Signed out with plan to allow additional time to metabolize substances, reassess, discharge when back to baseline. On reassessment he reports feeling much better, back to normal. at bedside in agreement. Reassuring vital signs and ambulates with steady gait. Advised to avoid THC products, followup with PCP. Discharged home; discharge instructions and return precautions were reviewed with patient and partner who verbalized understanding. All questions were answered and they are in full agreement with the plan. Quality:SDOH Health Related Social Needs: Health related social needs details N/A Discharge Plan Disposition Patient Disposition: Home Condition: Good Discharge Details Clinical Impression: Intoxication by drug Primary Care Provider: Suzanne Howell ED Provider: Lisa Carranza Home Meds and New Rx's Prescriptions: Continued multivitamin Tablet 1 tab PO DAILY valacyclovir [Valtrex] 1 gram tablet 2,000 mg PO Q12H Qty: 12 1RF Rx Instructions: Cold sores: 2,000mg by mouth q12h x1d, may repeat x1 for cold sores. Start UZIEL after symptom onset. Discharge Instructions Instructions: Accidental Overdose, Adult ED Additional Instructions: Avoid using THC products. Call your primary care doctor in the morning to schedule an appointment for within the next 72 hours to followup on your visit here. Return to the emergency department for new or worsening symptoms including if you feel confused again, or if you have any other concerns.
[2024-12-21] VITALS (78 sets, daily range): BP systolic 93–142; BP diastolic 57–97; PULSE 61–109; RESP 15–18; TEMP 36.6–36.8; O2SAT 93–99
--- NOTE | 2024-12-21 | DI.MRI_ITS ---
Exam(s) MR BRAIN WO EXAM: MR BRAIN WO CLINICAL HISTORY: acute confusion, amnesia, not clearing overnight TECHNIQUE: Multiplanar multisequence MRI of the brain was performed. COMPARISON: CT CT BRAIN NECK CTA from 11/27/[address] HEAD WO from 12/21/2024 FINDINGS: The examination is limited due to patient motion artifact. VENTRICLES AND EXTRA AXIAL SPACES: Normal in size and morphology for the patient's age. MIDLINE SHIFT: None. CEREBRAL PARENCHYMA: No focus of restricted diffusion to suggest acute infarct. No space-occupying lesion identified. HEMORRHAGE: None. BRAINSTEM/CEREBELLUM: Normal. CALVARIUM: Normal. VISUALIZED PARANASAL SINUSES/MASTOIDS:There is a mucous retention cyst in the right maxillary sinus. [place] OF [place]: Normal flow void. PITUITARY GLAND: Unremarkable. OTHER FINDINGS: None. IMPRESSION: Unremarkable MRI of the brain. DATA REPOSITORY:
[2024-12-21] MEDS: Ondansetron O.D.T. 4 MG TABEF PO (03:56)
--- NOTE | 2024-12-21 04:22 | W.EDPROG ---
Date of service: 12/21/24 Time of Service: 04:22 Medical Decision Making Discussed with poison control as it has now been almost 9 hours in the ED without fully clearing. Patient no longer feels spacy or weird but does continue to have significant memory difficultly. They agree symptoms/presentation consistent with THC; given unknown ingestion and length of symptoms thus far may be up to 24 hours before fully clears if this is the cause. Advised EKG and repeat head CT which were ordered. Advised observation until back to baseline; can clear at that point. Give this, may require hospital obs; will continue to reassess and may need admission after head CT if continues to be altered. He does have a history of HSV and so considered encephalitis (as well as other causes of encephalitis) however would not expect recurrent symptoms with resolution between and presentation and exam today are essentially identical to his prior visit (aside from mydriasis on that visit which he does not have now). No fevers, headache, or neck pain. Would not get LP. Also considering transient global amnesia although again timing in relation to heavy THC consumption seems less likely. No abnormal movements noted at any point to suggest seizure. No indication at this time for transfer for emergent MRI; would consider if not continues to remain altered. Reassessed patient at 0515; at bedside who had earlier reported that he seemed back to his usual self and requested discharge is in agreement with my current assessment that he remains altered, unable to remember our conversation during course of it. EKG is SR, appropriate intervals, no ST segment or T wave abnormalities to suggest occlusive IA. CT head independently reviewed; no ICH or mass on my view, radiology read with no acute findings. Reassessed patient at 0640. He continues with anterograde amnesia, does not recall having CT or EKG. Otherwise normal neurologic exam and he states that he feels normal. Discussed with [facility] hospitalist Dr. Islas; pt accepted to medicine service for observation for further workup and management. Awaiting orders and transfer to the floor. Lab Data Lab results reviewed: Yes I reviewed the patient's lab results. Labs: Laboratory Tests Range/Units 12/20/24 12/20/24 12/20/24 20:40 21:05 22:30 WBC (4.4-10.8) 10^3/uL 9.77 RBC (4.36-5.78) 10^6/uL 4.82 Hgb (13.5-17.5) g/dL 15.4 Hct (40.0-50.0) % 44.8 MCV (80-95) fL 93 MCH (27.0-33.0) pg 32.0 MCHC (32.0-36.0) % 34.4 RDW (11.8-14.1) % 12.4 Plt Count (130-400) 10^3/uL 227 MPV (8.0-11.0) fL 9.9 Immature Gran % % 0.3 Neutrophils % % 73.4 Lymphocytes % % 20.8 Monocytes % % 5.2 Eosinophils % % 0.1 Basophils % % 0.2 Nucleated RBC % (0.0-0.3) % 0.0 Absolute Neutrophils (1.2-6.7) 10^3/uL 7.17 H Absolute Lymphocytes (1.2-3.4) 10^3/uL 2.03 Absolute Monocytes (0.1-0.8) 10^3/uL 0.51 Absolute Eosinophils (0.0-0.7) 10^3/uL 0.01 Absolute Basophils (0.0-0.2) 10^3/uL 0.02 Sodium (136-145) mmol/L 139 Potassium (3.5-5.1) mmol/L 3.7 Chloride (98-107) mmol/L 100 Carbon Dioxide (21.0-32.0) mmol/L 29.1 Anion Gap (3-11) mmol/L 9.9 BUN (7-18) mg/dL 9 Creatinine (0.70-1.30) mg/dL 0.9 Est GFR (CKD-EPI 2020) (mL/min/1.73m2) 108.68 Glucose (74-106) mg/dL 168 H Calcium (8.5-10.1) mg/dL 9.5 Magnesium (1.8-2.4) mg/dL 1.8 Total Bilirubin (0.2-1.0) mg/dL 0.5 AST (15-37) U/L 26 ALT (16-63) U/L 26 Alkaline Phosphatase (46-116) U/L 81 Ammonia (11-32) umol/L < 10 L Troponin I (<or=76) ng/L 4 Total Protein (6.4-8.2) g/dL 8.3 H Albumin (3.4-5.0) g/dL 4.4 TSH (0.36-3.74) uIU/mL 2.88 Urine Opiates Screen (Negative) Negative Urine Methadone Screen (Negative) Negative Ur Barbiturates Screen (Negative) Negative Ur Tricyclics Screen (Negative) Negative Ur Amphetamines Screen (Negative) Negative U Benzodiazepines Scrn (Negative) Negative Urine Cocaine Screen (Negative) Negative Ur THC Screen (Negative) Positive A Ethyl Alcohol (<10) mg/dL < 3.0 Quality:SDOH Health Related Social Needs: Health related social needs details N/A Exam Narrative Exam Narrative: Neuro: ? GCS 15.? PERRL.? EOMI.? Fluent speech, no dysarthria. Motor- 5/5 strength symmetric bilateral upper and lower extremities Sensation- ?Intact to light touch and symmetric multiple dermatomes including upper and lower extremities Coordination- No dysmetria on finger to nose Reflexes- 2/4 achilles & patellar, no clonus Gait/station: ?Normal stance.? No truncal ataxia. Steady gait with equal normal steps CRANIAL NERVES: II: Pupils equal and reactive, III, IV, : EOM intact, no gaze preference or deviation, no nystagmus. V: normal sensation in V1, V2, and V3 segments bilaterally VII: no asymmetry, no nasolabial fold flattening VIII: normal hearing to speech IX, X: normal palatal elevation, no uvular deviation XI: 5/5 head turn and 5/5 shoulder shrug bilaterally XII: midline tongue protrusion Discharge Plan Disposition Patient Disposition: Admit to [facility] Condition: Serious Discharge Details Clinical Impression: Intoxication by drug, Anterograde amnesia Primary Care Provider: Suzanne Howell ED Provider: Lisa Carranza Home Meds and New Rx's Prescriptions: Continued multivitamin Tablet 1 tab PO DAILY valacyclovir [Valtrex] 1 gram tablet 2,000 mg PO Q12H Qty: 12 1RF Rx Instructions: Cold sores: 2,000mg by mouth q12h x1d, may repeat x1 for cold sores. Start UZIEL after symptom onset.
--- NOTE | 2024-12-21 05:00 | DI.CT_ITS ---
Exam(s) CT HEAD WO EXAM: CT HEAD WO CLINICAL HISTORY: altered mental status. TECHNIQUE: Imaging Protocol: Axial computed tomography images with coronal and sagittal reformatted images were created and reviewed COMPARISON: CT CT BRAIN NECK CTA from 11/27/2024 FINDINGS: Ventricles and Extra axial spaces: Normal in size and morphology for the patient's age. Hemorrhage: None. Cerebral parenchyma: Normal. Midline shift: None. Brainstem/Cerebellum: Normal. Calvarium: Normal. Visualized Paranasal sinuses/Mastoids: There is a mucous retention cyst in the right maxillary sinus. Soft Tissues: Unremarkable. IMPRESSION: 1. No acute intracranial process. 2. The preliminary [facility] report was reviewed. RADIATION DOSE DELIVERED: 1,037.44mGy.cm Total DLP DATA REPOSITORY: All CT scans at this facility are submitted to the National Radiology Data Registry (NRDR) Dose Index Registry (DIR) with the [employer] (ACR). RADIATION OPTIMIZATION: All CT scans at this facility use at least one of these dose optimization techniques: automated exposure control; mA and/or kV adjustment per patient size (includes targeted exams where dose is matched to clinical indication); or iterative reconstruction.
--- NOTE | 2024-12-21 05:00 | RT.EKG_ITS ---
APPROVED REPORT Exam: Resting ECG Reason for Exam: intoxication Patient Location: E HR:85 bpm ECG Measurements Heart Rate 85 AXIS [place] 144 P 79 QRSd 81 QRS 67 QT 392 T 38 QTc 467 Conclusion Sinus rhythm...normal P axis, V-rate 60- [address] segment or T wave abnormalities to suggest occlusive DC
--- NOTE | 2024-12-21 06:31 | DI.[facility]_ITS ---
PROCEDURE INFORMATION: Exam: CT Head Without Contrast Exam date and time: 12/21/2024 5:38 AM Age: 44 years old Clinical indication: Altered mental status/memory loss; AMS, confusion, memory loss TECHNIQUE: Imaging protocol: Computed tomography of the head without contrast. COMPARISON: CT BRAIN NECK CTA 11/27/2024 11:20 PM FINDINGS: Brain: There is no evidence of acute intracranial hemorrhage. There are no findings to suggest acute cerebral ischemia. No midline shift or mass effect is evident. There is normal maya-white matter differentiation of parenchymal structures. The cortical sulci and subarachnoid cisterns appear unremarkable. Cerebral ventricles: No ventriculomegaly. Paranasal sinuses: Right maxillary and sphenoid sinus mucous retention cysts. No air-fluid levels. Mastoid air cells: Mastoid air cells well pneumatized. Orbital cavities: Globes intact. Bones: Unremarkable. No acute fracture. Soft tissues: Unremarkable. IMPRESSION: No acute intracranial abnormality. Dictated and Authenticated by: Jerry Marcos MD. Orderin Tere Gonzalez MD
--- NOTE | 2024-12-21 07:56 | W.PC.ACHO ---
Registration Status: REG ER Primary Language: Preferred Language: German ED Information & Data Chief Complaint AMS/LOC 12/20/24 22:19 Triage Note PT reports feeling spacy 12/20/24 20:13 nauseous and disconnected is not sure when it started . does not remember how he got to this ED. Medical / Surgical History (Last Reviewed 12/20/24 @ 22:16 by Shad Garcia MD) Dysthymia (09/12/17) Chronic anxiety (04/19/13) Alcoh dep NEC/NOS, unspec (03/21/12) (Last Reviewed 12/20/24 @ 22:16 by Shad Garcia MD) No significant past surgical history Most Recent Vital Signs Temperature 36.5 C 12/20/24 20:17 Pulse 81 12/21/24 06:40 Respiratory Rate 20 12/20/24 20:17 Respiratory Effort Normal 12/20/24 20:17 Respiratory Depth Normal 12/20/24 20:17 Respiratory Pattern Normal 12/20/24 20:17 Blood Pressure 124/72 12/21/24 06:15 Blood Pressure Mean 85 12/21/24 06:15 Blood Pressure Position Sitting 12/20/24 20:17 Pulse Oximetry 96 12/21/24 06:40 Oxygen Delivery Method Room Air 12/20/24 20:17 Oxygen Flow Rate 0 12/20/24 20:17 Allergies bupropion HCl (From Wellbutrin) Adverse Reaction (Severe, Verified 12/20/24 20:19) extreme anxiety at higher dose 150mg BID only-tolerated 150mg daily. IV IV Catheter Type [Left Saline Lock Antecubital] IV Catheter Gauge [Left 18 Antecubital] Diet Orders Category Date Time Status Regular/Normal [DIET] Nutrition 12/21/24 Lunch Active Diagnostics 12/20/24 12/20/24 12/20/24 Range/Units 22:30 21:05 20:40 WBC 9.77 (4.4-10.8) 10^3/uL RBC 4.82 (4.36-5.78) 10^6/uL Hgb 15.4 (13.5-17.5) g/dL Hct 44.8 (40.0-50.0) % MCV 93 (80-95) fL MCH 32.0 (27.0-33.0) pg MCHC 34.4 (32.0-36.0) % RDW 12.4 (11.8-14.1) % Plt Count 227 (130-400) 10^3/uL MPV 9.9 (8.0-11.0) fL Immature Gran % 0.3 % Neutrophils % 73.4 % Lymphocytes % 20.8 % Monocytes % 5.2 % Eosinophils % 0.1 % Basophils % 0.2 % Nucleated RBC % 0.0 (0.0-0.3) % Absolute Neutrophils 7.17 H (1.2-6.7) 10^3/uL Absolute Lymphocytes 2.03 (1.2-3.4) 10^3/uL Absolute Monocytes 0.51 (0.1-0.8) 10^3/uL Absolute Eosinophils 0.01 (0.0-0.7) 10^3/uL Absolute Basophils 0.02 (0.0-0.2) 10^3/uL Sodium 139 (136-145) mmol/L Potassium 3.7 (3.5-5.1) mmol/L Chloride 100 (98-107) mmol/L Carbon Dioxide 29.1 (21.0-32.0) mmol/L Anion Gap 9.9 (3-11) mmol/L BUN 9 (7-18) mg/dL Creatinine 0.9 (0.70-1.30) mg/dL Est GFR (CKD-EPI 2020) 108.68 (mL/min/1.73m2) Glucose 168 H (74-106) mg/dL Calcium 9.5 (8.5-10.1) mg/dL Magnesium 1.8 (1.8-2.4) mg/dL Total Bilirubin 0.5 (0.2-1.0) mg/dL AST 26 (15-37) U/L ALT 26 (16-63) U/L Alkaline Phosphatase 81 (46-116) U/L Ammonia < 10 L (11-32) umol/L Troponin I 4 (<or=76) ng/L Total Protein 8.3 H (6.4-8.2) g/dL Albumin 4.4 (3.4-5.0) g/dL TSH 2.88 (0.36-3.74) uIU/mL Urine Opiates Screen Negative (Negative) Urine Methadone Screen Negative (Negative) Ur Barbiturates Screen Negative (Negative) Ur Tricyclics Screen Negative (Negative) Ur Amphetamines Screen Negative (Negative) U Benzodiazepines Scrn Negative (Negative) Urine Cocaine Screen Negative (Negative) Ur THC Screen Positive A (Negative) Ethyl Alcohol < 3.0 (<10) mg/dL Intake and Output - 24 Hour Total 12/20/24 20:09 thru 12/20/24 22:23 Intake Total 1982.333 Balance Weight 58.967 kg Intake: IV Falls Risk Assessment History of Falls No History 12/20/24 20:17 Contributing Factors Confusion 12/20/24 20:17 Ambulatory Aids Independent 12/20/24 20:17 Tubes/Lines None 12/20/24 20:17 Gait Evaluation No gait disturbance 12/20/24 20:17 Cognition No cognitive impairment 12/20/24 20:17 Fall Total Score 3 12/20/24 20:17 Level of Risk Standard/Low Risk 12/20/24 20:17 v v v v v v v v v Sending and/or Receiving Nurses: Please use comment section below to note any information pertinent to the patient hand-off not included above. Information / Comments: Report received from: c/o spacy and forgetfullness and confusion. UA shows THC and states he took some gummies. VS SUZETTEL Dora, RN
--- NOTE | 2024-12-21 13:11 | W.PM.HP.N ---
Date of service: 12/21/24 Time of Service: 12:17 Assessment and Plan Assessment and plan (1) Anterograde amnesia: Status: Acute Assessment and plan: This seems most c/w transient global amnesia Neurologic exam is benign. CT and MRI reassuring. Drying cold sore, but no fever or other symptoms or MRI findings to suggest herpes encephalitis, I don't think LP is indicated. Will give a dose of thiamine, though no recent EtOH use. Will request teleneurology for additional guidance. (2) Intoxication by drug: Status: Acute Assessment and plan: intially felt to be c/w THC intoxication, but his mentation and neurologic fucntion is intact other than his memory, now 24 hours or so since THC use, s (3) DVT prophylaxis: Status: Acute Assessment and plan: low risk, ambulatory History of Present Illness History of Present Illness Chief Complaint: confusion/amnesia Narrative: 44 yo M with history of depression and anxiety and regular THC use who presented to the emergency room last night 12/20 after his partner noticed he was repeating himself, asking where he was repetitively. History per partner. Amnesia started in the early evening 12/20 and worsening before he was brought to the ED around 10pm. He had not been eating much, and had taken THC gummies. He had a similar episode 11/27 when he was evaluated in the emergency room, but that episode resolved after a few hours and he was dicharged home. That episode was also assocaited with vaping THC. Poison control recommended repeating CT brain, which was negative, and observation for 24 hours. He was observed overnight but did not improve so the hospitalist team was asked to admit. He has no headache or other pain. He had some nausea which improved with ondansatron in the ED. He never had abnormal movement, focal numbness or weakness, balance problems, or vision or voice changes. He has not been incontinent. He has a cold sore on his lip for the past week, which is not uncommon. Partner states he has been more depressed in the past few months since he has not been working, and he has chronic anxiety. He has a remote history of heavy drug use in his 20s, including alcohol, cocaine, and hallucinigens, but has not used in 16+ years. Review of Systems All systems reviewed & are unremarkable except as noted in HPI and below Integumentary/Breasts Skin/Breast: Reports rash (splotchy on neck/back for months, not itchy. ) PFSH All Active Problems (Updated 12/21/24 @ 13:32 by Aubrey Islas) DVT prophylaxis (Acute) Anterograde amnesia (Acute) Intoxication by drug (Acute) Multiple benign nevi (Acute) History of nicotine dependence (Chronic) Herpes simplex (Chronic 03/22/12) Oral; suppressive tx started 12/12/2019 Medical History Dysthymia (09/12/17) Intermittent fluox Chronic anxiety (04/19/13) Ritualistic tendencies Alcoh dep NEC/NOS, 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 s/p hospitalization Surgical History No significant past surgical history Family History Mother , [place] when Cristian was 6 yo, dad remarried CAD (coronary artery disease) Myocardial infarct Father , stroke Stroke Maternal Grandfather Alcohol abuse CAD (coronary artery disease) Other Anxiety Drug addiction Social History (Updated 12/21/24 @ 13:30 by Aubrey Islas) Smoking/Tobacco Use Status: Former Tobacco Use Tobacco: How many years used: 10 Smoking risk assessment performed?: Yes Alcohol Intake: former Year quit: 2006 Drug use: Rarely Substance use type: marijuana Details: now more regular Adopted: No Caregiver/Support person: No Foster care: No Household members: family Housing: house Number of Children: 1 Communication Needs: None Education Level: high school Do you need help understanding health information?: Never 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 Pets and animals: Yes Pets and animals: cat(s) and dog(s) Sexually active: Yes Do you think of yourself as: straight/heterosexual Current gender identity: male What is your relationship status?: How often do you talk on the phone with friends or family?: never How often do you get together with friends or relatives?: never How often do you attend sabianism or islam services?: decline to answer Do you belong to any clubs or organized social groups?: no Panel score (0-1 are the most socially isolated patients): 1 What type of physical activity do you participate in: regular exercise and other Details: basketball Duration: 15-30 minutes/day Frequency: 3-4 times per week Edna/Taoist: None Agree to transfusion: No Seatbelt use: always Helmet use: No (No reason) Drive intox or ride w/intox waste collection driver: No Working smoke detector in home: Yes Fire extinguisher in home: Yes Carbon monox detector in home: Yes Firearms in home: No Do you feel safe at home: Yes Do you feel safe in your relationship?: Yes Additional Social history: Lives with partner, unemployed currently. 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 pleasant and cooperative, but unable to give history, asking where he is, looking frequently at note that tells him he is in the hospital and safe. No acute distress at rest. HEENT: Head atraumatic. Conjunctiva clear, no icterus. PEERL, EOMI. no rhinorrhea. MMM, OP benign other than dry crust on left lower lip. Neck is supple with no masses or lymphadenopathy, normal ROM without pain, trachea midline LUNGS: CTAB with normal effort CV: RRR with no murmurs, gallops, or rubs. ABD: active bowel sounds, soft, nontender and nondistended. No masses. EXT: no cyanosis, clubbing, or edema MSK: No joint redness or swelling NEURO: CN 2-12 intact, including visual peña to confrontation. Normal FNF/LIDA/HTS. Negative pronator drift. Normal strength and sensation, symmetric 2+ DTRs of 4 extremities. Normal speech, normal gait including tandem, negative rhomberg. No tremor SKIN: No rashes other than slightly hyperpigmented macules back and chest (c/w tinea versicolor), no open wounds. PSYCH: normal mood and affect, no apparent hallucinations, poor insight. Results Labs 12/20/24 20:40 12/20/24 20:40 Labs: Laboratory Results - last 24 hr 12/20/24 12/20/24 12/20/24 20:40 21:05 22:30 WBC 9.77 RBC 4.82 Hgb 15.4 Hct 44.8 MCV 93 MCH 32.0 MCHC 34.4 RDW 12.4 Plt Count 227 MPV 9.9 Immature Gran % 0.3 Neutrophils % 73.4 Lymphocytes % 20.8 Monocytes % 5.2 Eosinophils % 0.1 Basophils % 0.2 Nucleated RBC % 0.0 Absolute Neutrophils 7.17 H Absolute Lymphocytes 2.03 Absolute Monocytes 0.51 Absolute Eosinophils 0.01 Absolute Basophils 0.02 Sodium 139 Potassium 3.7 Chloride 100 Carbon Dioxide 29.1 Anion Gap 9.9 BUN 9 Creatinine 0.9 Est GFR (CKD-EPI 2020) 108.68 Glucose 168 H Calcium 9.5 Magnesium 1.8 Total Bilirubin 0.5 AST 26 ALT 26 Alkaline Phosphatase 81 Ammonia < 10 L Troponin I 4 Total Protein 8.3 H Albumin 4.4 TSH 2.88 Urine Opiates Screen Negative Urine Methadone Screen Negative Ur Barbiturates Screen Negative Ur Tricyclics Screen Negative Ur Amphetamines Screen Negative U Benzodiazepines Scrn Negative Urine Cocaine Screen Negative Ur THC Screen Positive A Ethyl Alcohol < 3.0 Last Vital Signs Temp 36.8 C 12/21/24 12:16 Pulse 77 12/21/24 12:16 Resp 17 12/21/24 12:16 BP 138/94 H 12/21/24 12:16 Pulse Ox 99 12/21/24 12:16 Time Spent Time spent with Patient: 55-74 minutes Time was spent: preparing to see the patient(eg.review tests), obtaining and/or reviewing separately otained hiistory, ordering medications,tests, procedures, referring, communicating with other health clinical manager home care, indepentently interpreting results, counseling the patient and care coordination
[2024-12-21] MEDS: Multivitamin TAB 1 TAB PO (15:05)
[2024-12-21] MEDS: THIAMINE 500 MG in Normal Saline 100 ML 200 MG IVPB (15:05)
[2024-12-21] MEDS: Normal Saline 100 ML (15:06)
[2024-12-21] MEDS: Normal Saline Flush 10 ML SYR IVP ×3 (15:06→22:04)
[2024-12-21] MEDS: Midazolam 2 MG/2 ML VIAL IVP (16:33)
--- NOTE | 2024-12-21 17:08 | ANES.PROC_ITS ---
Lumbar Puncture Date Performed: 12/21/24 Procedure Time: 16:42 Requesting Provider: Aubrey Islas Procedure Location: Med/Surg Standard Monitors Applied: None Used Patient Position: Left Lateral Decubitus Timeout Performed: Yes Sedation Given (Indicate Dose Given): Directed by Requesting Provider (midaz 2 mg. ) Patient Mental Status: Sedate with meaningful communication Sterility: Hand Hygiene, Surgical Cap, Surgical Mask, Sterile Gloves, Sterile Drape/Sheet, Sterile Gown, Eye Protection and Chlorhexidine Placement Site: L2-L3 Interspace Spinal Needle Type: Matt 22 Gauge Needle Length: 3.5 Inch Lumbar Puncture Procedure: Site Prepped, Sterile Drape Placed, 1% Lidocaine to skin and subcutaneous tissue with 25G needle, Introducer Needle Used, Spinal Needle Placed, CSF Specimen placed into Tubes in Sequential Order and Specimen L abeled, Sent to Lab Ultrasound: Used to dominique site Opening CSF Pressure (cmH2O): 10 Paresthesia: None Number of Previous Attempts by Other Providers: 0 Number of Attempts (See previous attempts in note section): 1 Procedure Tolerated: No Complications Procedure Outcome: Successful Procedure Comment:: History and medications reviewed with Cristian and his . No anticoagulation, no bleeding disorders noted. Discussed plan, risks. Consent performed with Cristian and his , but signed by her. Performed By: Kevin Cunningham
[2024-12-21 17:51] LABS: Glucose (CSF) 78 mg/dL (40-70); Total Protein (CSF) 53 mg/dL (15-45)
[2024-12-21 18:03] LABS: Xanthochromia Absent
[2024-12-21 18:34] LABS: WBC 1 /uL (0-5)
[2024-12-21 18:35] LABS: RBC 1 /mm3 (0-5)
[2024-12-22 07:44] VITALS: BP 123/84; PULSE 92; RESP 16; TEMP 37.1; O2SAT 98
--- NOTE | 2024-12-22 09:58 | INITIAL_ITS ---
Date of service: 12/22/24 Time of Service: 09:58 Care Management Initial Assmt Initial Assessment Reason for Hospitalization: transient global amnesia Functional Status/Living Situation Patient Presentation: Cristian presented to the ED late on 12/20 with c/o confusion and forgetfulness. He reportedly was repeating himself, and asking the same questions. He had difficulty remembering his whereabouts. He was going to be discharged home the night of the , but became nauseous and was more confused, so d/c cancelled. CT and MRI were reassuring. He was observed in the ED over night on the , and did not improve, so was admitted to observation. LP was performed last evening, as symptoms were not improving. He has had a psych consult and neuro consult, with no real answers. Cristian was lying in bed, , Stacy, at the bedside, when CM met with them today. Cristian really didn't interact with CM, but seemed pleasant enough. Stacy was very pleasant, and also very worried. She stayed the night last night, and intends to stay tonight as well. She was going to go home for a bit, while Cristian had another visitor, to get something to eat and to spend some time with their 5yo daughter, Yvette. Town of Residence: [place] Resides with: Spouse (Stacy and 5yo Yevtte) Employment Status: Unemployed Instrumental Activities of Daily Living (ADLs): Independent Advance Directives Advance Directives: Do you have an Advance Directive: N , 11:24 AD On File at [facility]: N 02/14/15, 11:24 Date Asked 12/20/24 12/20/24, 20:10 AD Date Reviewed COLST On File at [facility] No 11/27/24, 22:15 COLST Date Scanned Code Status Resuscitation Status Full Code Insurance Coverage/Financial Issues Insurance: [facility] Medicaid of [place]? Care Team Visit Care Team Role Provider Type Alejandro Chavez MD MD [facility] STAFF PHYSICIAN Suzanne Howell, JEANCARLOS Primary Care Provider NURSE PRACTITIONER Lisa Carranza MD Emergency Provider [facility] STAFF PHYSICIAN Aubrey Islas Admit Provider [facility] STAFF PHYSICIAN Attending Provider Discharge Potential Discharge Needs: PCP F/U Appt Anticipated Barriers to Discharge: None Identified Patient/Family Education Needs: Review discharge instructions, discuss Ask Me Three Transportation: Private vehicle Plan: Anticipate that Cristian will discharge home with no new services. He will f/u with his PCP and maybe neurology and continue per his plan of care. He will transport home with his . CM will continue to follow. Social Determinants of Health Screening Social Determinants of health last assessed in clinic: 12/22/24 Will the Patient Participate in the Screening?: Yes Do you worry about having a steady place to live?: no Problems where you live: no known problems In the past 12 months, have you had to go without electric, gas, oil or water in your home?: no 1. Within the past 12 months, we worried whether our food would run out before we got money to buy more.: Don't know/refused 2. Within the past 12 months, the food we bought just didn't last and we didn't have money to get more.: Don't know/refused Has lack of transportation kept you from medical appointments or from doing things needed for daily living?: no Has anyone in your life made you feel unsafe or unsupported?: no How hard is it for you to pay for the very basics like food, housing, medical care, and heating? Would you say it is:: Not hard at all Do you want help finding or keeping work or a job?: I do not need or want help If for any reason you need help with day-to-day activities such as bathing, preparing meals, shopping, managing finances, etc., do you get the help you need?: I don?t need any help How often do you feel lonely or isolated from those around you?: Never Do you speak a language other than Algerian at home?: No PFSH All Active Problems (Updated 12/21/24 @ 13:32 by Aubrey Islas) DVT prophylaxis (Acute) Anterograde amnesia (Acute) Intoxication by drug (Acute) Multiple benign nevi (Acute) Herpes simplex (Chronic 03/22/12) Oral; suppressive tx started 12/12/2019 History of nicotine dependence (Chronic) Medical History Dysthymia (09/12/17) Intermittent fluox Chronic anxiety (04/19/13) Ritualistic tendencies Alcoh dep NEC/NOS, 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 s/p hospitalization Surgical History No significant past surgical history Family History Mother , [place] 2010 when Cristian was 6 yo, dad remarried CAD (coronary artery disease) Myocardial infarct Father , stroke Stroke Maternal Grandfather Alcohol abuse CAD (coronary artery disease) Other Anxiety Drug addiction Social History (Updated 12/21/24 @ 13:30 by Aubrey Islas) Smoking/Tobacco Use Status: Former Tobacco Use Tobacco: How many years used: 10 Smoking risk assessment performed?: Yes Alcohol Intake: former Year quit: 2006 Drug use: Rarely Substance use type: marijuana Details: now more regular Adopted: No Caregiver/Support person: No Foster care: No Household members: family Housing: house Number of Children: 1 Communication Needs: None Education Level: high school Do you need help understanding health information?: Never 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 Pets and animals: Yes Pets and animals: cat(s) and dog(s) Sexually active: Yes Do you think of yourself as: straight/heterosexual Current gender identity: male What is your relationship status?: How often do you talk on the phone with friends or family?: never How often do you get together with friends or relatives?: never How often do you attend baptist or restorationist services?: decline to answer Do you belong to any clubs or organized social groups?: no Panel score (0-1 are the most socially isolated patients): 1 What type of physical activity do you participate in: regular exercise and other Details: basketball Duration: 15-30 minutes/day Frequency: 3-4 times per week Edna/Religious: None Agree to transfusion: No Seatbelt use: always Helmet use: No (No reason) Drive intox or ride w/intox log driver: No Working smoke detector in home: Yes Fire extinguisher in home: Yes Carbon monox detector in home: Yes Firearms in home: No Do you feel safe at home: Yes Do you feel safe in your relationship?: Yes Additional Social history: Lives with partner, unemployed currently. 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
--- NOTE | 2024-12-22 11:38 | W.PM.PROGNOT ---
Date of Service Date of service: 12/22/24 Time of Service: 11:38 Assessment and Plan Assessment and plan (1) Anterograde amnesia: Status: Acute Assessment and plan: -This seems most c/w transient global amnesia -Neurologic exam is benign. -CT and MRI reassuring. -Drying cold sore, but no fever or other symptoms or MRI findings to suggest herpes encephalitis -appreciate Tele-neuro recs; LP done -of note, patient received benzo for LP and after awakening he was reported to have had a period of returning to his mental status baseline, though as of AM 12/22 is only oriented to person -Tele-psych consult placed (2) Intoxication by drug: Status: Acute Assessment and plan: -intially felt to be c/w THC intoxication, but his mentation and neurologic fucntion is intact other than his memory, now >36 hours or so since THC use (3) DVT prophylaxis: Status: Acute Assessment and plan: low risk, ambulatory Subjective Subjective Interval history since last seen: Patient remains confused, though apparently less so then compared to previous day. Exam Narrative Exam Narrative: well appearing gentleman sitting up in the bed in no acute distress, awake, alert, oriented to person only, heart RRR, lungs CTAB, abdomen soft, non-tender, non-distended Objective Last Vital Signs Temp 98.8 F 12/22/24 07:44 Pulse 92 H 12/22/24 07:44 Resp 16 12/22/24 07:44 BP 123/84 12/22/24 07:44 Pulse Ox 98 12/22/24 07:44 Laboratory Results - last 24 hr 12/21/24 17:00 Xanthochromia Absent CSF Tube Number 4 CSF Color Colorless CSF Clarity Clear CSF WBC 1 CSF RBC 1 CSF Diff Comment CSF Glucose 78 H CSF Total Protein 53 H Time Spent with Patient Time Spent with Patient: >50 minutes Time was spent: preparing to see the patient(eg.review tests), obtaining and/or reviewing separately otained hiistory, ordering medications,tests, procedures, referring, communicating with other health healthcare recruiter, indepentently interpreting results, counseling the patient and care coordination
[2024-12-22] MEDS: Normal Saline Flush 10 ML SYR IVP ×2 (14:31→20:25)
--- NOTE | 2024-12-22 17:30 | PSYCO_ITS ---
Date of service: 12/22/24 Time of Service: 17:30 Summary Note PSYCHIATRY CONSULT NOTE: INITIAL EVALUATION Date/Time:?12/22/2024 5:26:49 PM Name:?Bon Harrison :?1980 Location of the patient:?[facility] IP Consulting Array Clinician:?Santos Arteaga Location of the clinician:?[place] Length of Consult:?45 minutes SUMMARY 44-year-old male, with history of anxiety disorder, depressive disorder, current cannabis use, remitted alcohol use, with no history of self-harming/suicidal beh avior/violent behavior, no past psychiatric hospitalizations, admitted to medicine 12/21 for AMS/amnesia referred to psychiatry for altered mental status. When seen, patient is cooperative but very limited in his ability to give history. His indicates that he has had some depression over the summer. He has a history of depression and anxiety and has been unemployed since July. He has been more isolated and has been self medicating with cannabis. She says his use has been increasing over the course of the summer. He had an episode not too long ago where he had used cannabis Gummies and had similar if not identical symptoms. She brought him to the ER and he cleared within 6 or 7 hours and was able to go home. Symptoms this time are very similar only he is not clearing. His said that she does not know exactly what he has been using. Friends of his have a cannabis dispensary and frequently encouraged him to try the newest thing. She has no exactly what has been using, how much, or how strong it may be. We discussed that in the absence of any identified medical causes, the most likely etiology is his cannabis use. I discussed with them that he may be someone who cannot use this any longer. I also warned them that some of the products that are showing up in dispensaries are increasingly strong and I have seen some unfortunate consequences of people using them. At this point, this does not appear to be directly related to psychiatric illness. No psychiatric medications are indicated. I discussed with them that this may just need additional time for him to clear and what ever he has been using metabolized. He does not require psychiatric admission.Patient denies SI/HI, does not display signs or symptoms of serious psychosis, has reliable collateral support who conf irms safety, has supportive and safe recovery environment. Patient does not appear to be at acute risk to self or others due to psychiatric illness or to require inpatient psychiatric hospitalization. Working Diagnoses:? F12.221 Cannabis dependence with intoxication delirium Rule Out Diagnoses:? CPT Codes:?29726 - Psychiatric Diagnostic Evaluation with Medical Services PLAN Disposition:? Discharge type: Discharge when medically stable ? Safety planning: Patient understands and agrees with discharge plan, is aware that should symptoms worsen to return to the ED or call 911 ? Resource information to be provided by site: information about patient's diagnosis, treatment recommendations, including dosage and side effects of any prescribed medications ? Observation level ? Psychiatric 1:1 needed??No psych 1:1 needed Work-up:? Pharmacological:? No psychiatric medication recommendations at this time ? Is patient psychotic? - No; Follow up needed while in the hospital??As needed for management of behavior or change in mental status Other:? Dementia/Delirium: AVOID BENZODIAZEPINES, ANTICHOLINERGICS, ANTIHISTAMINES, AND OTHER SEDATING MEDICATIONS, which may PRECIPITATE and worsen delirium ? Patient advised to stop all drug and alcohol use. Patient voiced understanding. ? Parts of this note were dictated using voice recognition software and may contain small irregularities and grammatical errors which are unintentional. ? If questions arise about the psychiatric care of this patient, please call the [facility]?to request a follow-up consult. ?Please do not contact me individually through the EMR chat as I am not?regularly logged on t o?this system. The psychiatrist for the follow-up visit may be a different psychiatrist Discussed plan with onsite steam hammer operator:?Yes - No way to contact Dr Kathy lockhart. Cooper Patel RN in room for assessment HISTORY This evaluation was conducted remotely with the assistance of onsite staff via HIPAA-compliant video call. Patient consented to proceed with the telehealth visit. Requested by:?Alejandro Chavez MD Sources of information:?Patient, medical record History of Present Illness:? 44-year-old male, living with spouse/partner, , unemployed, with history of anxiety disorder, depressive disorder, current cannabis use, remitted alcohol use, with no history of self-harming/suicidal behavior/violent behavior, no past psychiatric hospitalizations, admitted to medicine 12/21 for AMS/amnesia referred to psychiatry for altered mental status. UDS positive for cannabis, Alcohol undetectable. In the hospital, patient has been in behavioral control with no reported issues. Patient with history of depression and anxiety presenting to the ED 12/20/24 with confusion and forgetfulness. History limited secondary to altered mentation. History provided by significant other. This evening, he started repeating himself and asking the same questions. He also had difficulty remembering his whereabouts. His condition worsened rapidly as the evening progressed. He does not recall his previous visit to the ER a few weeks ago. He reports no pain, headache, nausea, shaking episodes, or urinary incontinence. He has been experiencing intermittent headaches over the past few days. He has been using THC gummies for a few years now, but this is the first time he has experienced such symptoms. He has been sober from alcohol for about 16 years and reports no use of other drugs. He is currently unemployed and spends most of his time at home. He does not take any medications regularly. He took Tums tonight due to feeling sweaty and unwell, but his condition deteriorated rapidly afterwards. He has not eaten all day and consumed a THC gummy after returning home. It is unclear if he had any THC before that. His partner believes that the combination of THC and an empty stomach may have triggered or exacerbated his symptoms. The patient experienced a similar episode of confusion and forgetfulness a few weeks ago. He was evaluated in the ED and had a negative workup including CT head. Symptoms improved. It was believed that that THC was involved in his last episode as well. Patient was medically admitted 12/21/2024 for further assessment of what appeared to be transient g lobal amnesia. Neurologic exam was benign. He was admitted for further assessment. Medical note from today indicates he remains confused but less so than the day prior. Spoke with Jerry Patel RN. he has waxing and waning MS. He remembers RN name but keeps forgetting other things. Now has been asking his the same questions. She thinks he is more clear when he wakes up and goes downhill from there. Had LP and when he woke up from the anesthesia he was on point and fully oriented. By the end of the day he was back to asking the same 3 questions repeatedly.. On psychiatric evaluation, patient is unreliable, organized, cooperative, alert, pleasant, unable to give clear history. He doesnt remember how he got here. He doesnt seems to remember Asking the same few questions on a loop per so he has a paper with the answers on it. . says she got home and he was off, a little confused, started repeated questions she had already answered. He continued to get worse and she brought him in. Thought it was a bad reaction to THC gummie. He had something similar a few weeks ago and had similar sx. He came to the ED and was better about 6 hours later and came home. This time he isnt coming back out of it. Since admission he seems to have some periods where he is doing better, seems to be better after some sleep. She is having trouble telling if he is overall getting better or not. She isnt sure if he used the same gummies as before. He has anxiety and depression worse this summer, not employed and isolated, crying more, more off meaning more withdrawn, more impatient, Using more and more THC over the past year. No other drug use. Negative about alot of things. Denies any SI. Has been on meds in the past but never helped and he currently has no treatment. Doesn't like meds. Poor appetite and hasnt eaten much in the last 2 days. Had one episode over the summer where he was smoking alot of weed and may have had a manic episode. for a couple days. Friend owns dispensary and his friends often encourage him to try the newest thing they got in. she doesnt know exactly what he has been using or how much.. Collateral Contacted in room--.See HPI for collateral. Most hx provided by his . PSYCHIATRIC REVIEW OF SYSTEMS (symptoms in past two weeks) Pertinent Positives:?depressed mood/insomnia/irritability/confusion Pertinent Negatives:?no anhedonia/no hopelessness/no aggressive behavior/no agitation/no command hallucinations/no anxiety/no panic attacks/no impulsivity PSYCHIATRIC HISTORY Past Psychiatric Diagnoses/Problems:?anxiety disorder, depressive disorder Psychiatric Treatment:?Hospitalizations:?no past psychiatric hospitalizations ???Other Past treatment:?medication management ???Current treatment:?no reported current psychiatric treatment Drug/Alcohol History ???Current excessive drug/alcohol use:?cannabis ???Past excessive drug/alcohol use:?alcohol ???Drug/alcohol use comment:?Treatment:?unknown ???Withdrawal symptoms:?unknown ???UDS results:?UDS positive for cannabis ???BAL results:?undetectable ???Active withdrawal Protocol:? Stressors:?acute medical illness, exacerbation of mental illness Trauma:?unknown Family Psychiatric History:?anxiety, alcoholism. HEALTH HISTORY Medical Problems:? Is patient linked with PCP? Psychiatric and other clinically relevant medications:?none Allergies/Adverse Medication Reactions:?wellbutrin Physical Findings:?no clinically significant changes in vital signs, no clinically significant abnormal lab values, BG 168 but hasn't eaten in 2.5 days. DEMOGRAPHICS/SOCIAL HISTORY Gender:?male Living Situation:?living with spouse/partner, and child Relationship Status:? 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 Not working since July Social Support Network:?supportive social network of family or friends Legal History:?none Special Considerations:?none RISK EVALUATION Suicidality/self-injury:?no history of suicidal/self-harming behavior Primary Suicide Screening (PSS-3) 1. In the past two weeks, have you felt down, depressed, or hopeless??YES 2. In the past two weeks, have you had thoughts of killing yourself??NO 3. In your lifetime, have you ever attempted to kill yourself??NO 3a. Within the past 6 months??NO ESS-6 Secondary Screen ( If #2 is yes or #3a is yes within the past 6 months, then complete secondary screen) 1. Positive on PSS-3 questions 2 & 3 ? active suicidal ideation with a past attempt??Screen not applicable 2. Have you been thinking about how you might kill yourself??Screen not applicable 3. Have you had some intention of acting on your thoughts??Screen not applicable 4. Lifetime psychiatric hospitalization??Screen not applicable 5. Has drinking or substance abuse ever been a problem for you??Screen not applicable 6. Current irritability, agitation, or aggression??Screen not applicable PSS-3/ESS-6 Secondary Screen Scoring:?Low Risk-PSS3 screen negative PSS-3/ESS-6 Scoring Interpretation Legend PSS-3 screen incomplete [Blank PSS-3 questions #2 OR #3a] PSS-3 screen unable to assess [Unable to Assess responses on PSS-3 questions #2 AND #3a] Mild [No current attempt AND No suicide plan or intent AND Score (0-2)] Moderate [No current attempt AND Active suicidal ideation with plan or intent (not both) OR Score (3-4)] Severe [Current attempt OR Suicide plan and intent OR Score (5-6)] HI/Violence/Property Destruction:?no history of violent/aggressive behavior Access to Firearms:?none Grave disability/Poor self-care:? Psychosis:?No Protective Factors:? High Utilization Criteria:?none Signs of Secondary Gain:?none MENTAL STATUS EXAM Appearance and Attire:? Normal, Good eye contact, Well groomed Psychomotor agitation:? No abnormality Attitude and behavior:? Cooperative Speech:? No abnormality Mood:? Euthymic Affect:? Full range of affect Thought Process:? Linear Thought content:? No abnormality Perception:? No hallucinations Intelligence:? Average Abstraction:?unable to assess Language:? No abnormality Orientation:? Oriented to person, Disoriented to place, Disoriented to time, Disoriented to situation Sensorium:? Distractible Knowledge:?unable to assess Memory:? Impaired to Recent recall (3 min), Impaired to Remote recall Insight:? Severe impairment Judgment:? Severe impairment SUMMARY RISK ASSESSMENT Current Suicide Risk Elevated??PSS-3/ESS-6 Scoring: Low Risk-PSS3 screen negative? Current Violence Risk Elevated??No Issues with ability to care for self.?No Santos Arteaga, , [facility]
[2024-12-22 21:00] VITALS: BP 128/84; PULSE 74; RESP 20; TEMP 36.7; O2SAT 96
[2024-12-22 23:29] LABS: HSV 1 DNA Result Negative (Negative); HSV 2 DNA Result Negative (Negative)
[2024-12-22 23:37] VITALS: BP 126/79; PULSE 72; RESP 20; TEMP 36.7; O2SAT 98
[2024-12-23 03:23] VITALS: BP 124/93; PULSE 74; RESP 20; TEMP 36.5; O2SAT 97
[2024-12-23 07:25] VITALS: BP 132/89; PULSE 84; RESP 16; TEMP 36.4; O2SAT 98
[2024-12-23] MEDS: Normal Saline Flush 10 ML SYR IVP (08:45)
[2024-12-23] MEDS: Multivitamin TAB 1 TAB PO (08:45)
--- NOTE | 2024-12-23 11:10 | PGE_ITS ---
Date of Service Date of service: 12/23/24 Time of Service: 11:10 Assessment and Plan Assessment and plan (1) Anterograde amnesia: Status: Acute Assessment and plan: -This seems most c/w transient global amnesia -Neurologic exam is benign. -CT and MRI reassuring. -Drying cold sore, but no fever or other symptoms or MRI findings to suggest herpes encephalitis -appreciate Tele-neuro recs; LP done -of note, patient received benzo for LP and after awakening he was reported to have had a period of returning to his mental status baseline, though as of AM 12/22 is only oriented to person -Tele-psych consulted; they also believe this is not psychiatric and that this is likely THC induced - Will add melatonin this evening to help patient's sleep, as it has been reported that he appears to be most lucid shortly after awakening (2) Intoxication by drug: Status: Acute Assessment and plan: -intially felt to be c/w THC intoxication, but his mentation and neurologic fucntion is intact other than his memory, now 60 hours or so since THC use (3) DVT prophylaxis: Status: Acute Assessment and plan: low risk, ambulatory Subjective Subjective Interval history since last seen: Long discussion with patient's in the presence of the patient. Patient appears to have somewhat improved memory though he continues to have episodes of the looping asking the same question within a few minutes. Patient's understands that this is likely THC induced and that all other probable medical diagnoses have been excluded with the exception of seizure disorder. Patient has EEG ordered, but if it is not able to be done tomorrow and the patient continues to have slow improvement she would be willing to take him back to the hospital to be done as an outpatient. Exam Narrative Exam Narrative: well appearing gentleman sitting up in the bed in no acute distress, awake, alert, oriented to person only long-term memory appears to be improving, though continues to have episodes of rapid short-term memory loss, heart RRR, lungs CTAB, abdomen soft, non-tender, non-distended Objective Last Vital Signs Temp 97.5 F L 12/23/24 07:25 Pulse 84 12/23/24 07:25 Resp 16 12/23/24 07:25 BP 132/89 12/23/24 07:25 Pulse Ox 98 12/23/24 07:25 Laboratory Results - last 24 hr 12/21/24 17:00 HSV I DNA PCR Negative HSV II DNA PCR Negative Time Spent with Patient Time Spent with Patient: >50 minutes Time was spent: preparing to see the patient(eg.review tests), obtaining and/or reviewing separately otained hiistory, ordering medications,tests, procedures, referring, communicating with other health furnace caretaker, indepentently interpreting results, counseling the patient and care coordination
[2024-12-23 11:16] VITALS: BP 134/90; PULSE 78; RESP 16; TEMP 36.6; O2SAT 96
[2024-12-23 15:23] VITALS: BP 130/80; PULSE 75; RESP 16; TEMP 36.8; O2SAT 98
--- NOTE | 2024-12-23 17:28 | DSE_ITS ---
Date of service: 12/23/24 Time of Service: 17:28 DS: Diagnosis Discharge Diagnosis (1) Anterograde amnesia: Status: Acute (2) Intoxication by drug: Status: Acute (3) DVT prophylaxis: Status: Acute Discharge Plan Disposition Patient Disposition: Home Condition: Improving Discharge Details Reason For Visit: toxic encephalopathy Admit Date/Time: 12/21/24 07:17 Admit Provider: Aubrey Islas Attending Provider: Aubrey Islas Primary Care Provider: Suzanne Howell Hospital Course Hospital Course: Patient presented with episode of anterograde amnesia after THC ingestion. He had a similar episode on 11/27/2024 but recovered within a few hours after presenting to the emergency department and discharged home. While hospitalized patient had all of the potential causes of retrograde amnesia excluded including LP that did not show any signs of meningitis, normal CBC, normal CMP, normal head CT. Teleneurology and psychology were also consulted and possibly if this was most likely secondary to THC ingestion. It is highly recommended that the patient refrain from ingesting any THC in the future. During hospitalization patient's memory is slowly improved to the point where his felt that she would be able to take care of him at home and that he would likely have further improvement of his memory being his own surroundings. Therefore, it was determined that the patient was stable for discharge home. It is recommended that she use p.o. melatonin to help if he is having difficulty sleeping at home. Home Meds and New Rx's Prescriptions: Continued multivitamin Tablet 1 tab PO DAILY valacyclovir [Valtrex] 1 gram tablet 2,000 mg PO Q12H Qty: 12 1RF Rx Instructions: Cold sores: 2,000mg by mouth q12h x1d, may repeat x1 for cold sores. Start UZIEL after symptom onset. Discharge Instructions Instructions: Accidental Overdose, Adult ED Additional Instructions: Avoid using THC products. Call your primary care doctor in the morning to schedule an appointment for within the next 72 hours to followup on your visit here. Return to the emergency department for new or worsening symptoms including if you feel confused again, or if you have any other concerns. Activity:: Activity as Tolerated Equipment/Supplies:: No Equipment Needed Diet:: As Tolerated Discharge Orders Discharge Orders: Discharge Order (Routine); Ordered 12/23/24 Ordered By: Alejandro Chavez DS: Summary Time Spent with Patient providing and/or coordinating discharge services: Greater than 30 minutes Status at Discharge Functional status at discharge: independent ambulation Overall status at discharge: patient is back to baseline Mental Status: mental status grossly normal Speech and Movement: speech and movement normal Mood: congruent mood Affect: normal affect Quality:SDOH Health Related Social Needs: Health related social needs details N/A Exam Narrative Exam Narrative: well appearing gentleman sitting up in the bed in no acute distress, awake, alert, oriented to person only long-term memory appears to be improving, short- term memory loss improved as compared to earlier in the day, heart RRR, lungs CTAB, abdomen soft, non-tender, non-distended Psych Mental Status: mental status grossly normal Speech and Movement: speech and movement normal Mood: congruent mood Affect: normal affect DS: Data Vitals/I&O Vitals and I&O: Vital Signs Temperature 98.2 F 12/23/24 15:23 Temperature Source Temporal Artery Scan 12/23/24 15:23 Pulse 75 12/23/24 15:23 Respiratory Rate 16 12/23/24 15:23 Respiratory Effort Normal 12/20/24 20:17 Respiratory Depth Normal 12/20/24 20:17 Respiratory Pattern Normal 12/20/24 20:17 Blood Pressure 130/80 12/23/24 15:23 Blood Pressure Mean 96 12/23/24 15:23 Blood Pressure Position Sitting 12/20/24 20:17 Pulse Oximetry 98 12/23/24 15:23 Oxygen Delivery Method Room Air 12/23/24 15:23 Oxygen Flow Rate 0 12/23/24 15:23 Pain Level 0 12/23/24 03:23 Comment PT sleeping. 12/22/24 03:29 Intake & Output 12/22/24 12/23/24 12/23/24 17:59 05:59 17:59 Intake Total 600 / 600 10 Balance 600 / 600 10 Intake: IV Oral 600 / 600 Other: Comment pt. voids independent in the toilet. 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 s/p hospitalization Surgical History No significant past surgical history Family History Mother , [place] 2010 when Cristian was 6 yo, dad remarried CAD (coronary artery disease) Myocardial infarct Father , stroke Stroke Maternal Grandfather Alcohol abuse CAD (coronary artery disease) Other Anxiety Drug addiction Social History (Updated 12/21/24 @ 13:30 by Aubrey Islas) Smoking/Tobacco Use Status: Former Tobacco Use Tobacco: How many years used: 10 Smoking risk assessment performed?: Yes Alcohol Intake: former Year quit: 2006 Drug use: Rarely Substance use type: marijuana Details: now more regular Adopted: No Caregiver/Support person: No Foster care: No Household members: family Housing: house Number of Children: 1 Communication Needs: None Education Level: high school Do you need help understanding health information?: Never 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 Pets and animals: Yes Pets and animals: cat(s) and dog(s) Sexually active: Yes Do you think of yourself as: straight/heterosexual Current gender identity: male What is your relationship status?: How often do you talk on the phone with friends or family?: never How often do you get together with friends or relatives?: never How often do you attend episcopalian or gnosticism services?: decline to answer Do you belong to any clubs or organized social groups?: no Panel score (0-1 are the most socially isolated patients): 1 What type of physical activity do you participate in: regular exercise and other Details: basketball Duration: 15-30 minutes/day Frequency: 3-4 times per week Edna/Lutheran: None Agree to transfusion: No Seatbelt use: always Helmet use: No (No reason) Drive intox or ride w/intox driver's license examiner: No Working smoke detector in home: Yes Fire extinguisher in home: Yes Carbon monox detector in home: Yes Firearms in home: No Do you feel safe at home: Yes Do you feel safe in your relationship?: Yes Additional Social history: Lives with partner, unemployed currently. 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
[2024-12-24 19:42] LABS: Specimen Source CEREBROSPINAL FLUID
[2024-12-25 16:46] LABS: West Nile Virus PCR, CSF Negative (Negative)
[2024-12-25 17:36] LABS: JC Virus PCR, CSF Negative (Negative)
== END 2024-12-23 17:42 | disposition home or self-care (01) ==
LOC: ER 12-21 07:00 → MS 12-21 08:03
PROVIDERS: Student in an Organized Health Care Education/Training Program; Admitting Provider Family Medicine; Emergency Provider Student in an Organized Health Care Education/Training Program; PCP Nurse Practitioner Adult Health; Responsible Provider Family Medicine; Visit Provider Family Medicine
DX: T40.711A Poisoning by cannabis, accidental (unintentional), initial encounter (principal); G92.8 Other toxic encephalopathy; U07.0 Vaping-related disorder; R41.1 Anterograde amnesia; F32.A Depression, unspecified; R51.9 Headache, unspecified; B00.1 Herpesviral vesicular dermatitis; F10.21 Alcohol dependence, in remission; Z79.899 Other long term (current) drug therapy
CPT/HCPCS: 62270; 00123; 36415; 76942; 80053; 80307; 82945; 87483; 87529; 87798; 89050; 89051; 93005; 96361; 96365; 96366; 96375; 99285; 70450; 70551; 80320; 82140; 83735; 84157; 84443; 84484; 85025; 93010; 99222; 99233; 99238; G0378; J2250; J3411